=== PATIENT | female | born 1960 | race Caucasian/White ===

== ENCOUNTER 2019-04-13 14:58 | Outpatient (CLI) | payer OTHER, SELFPAY ==
--- NOTE | ~2019-04-13 | US_ITS ---
EXAMINATION:US venous doppler LE RT INDICATION:Right lower extremity pain TECHNIQUE: Multiple grayscale, color flow and Doppler images of the right lower extremity deep venous systems were obtained and reviewed. COMPARISON:No prior studies for comparison. FINDINGS: The common femoral, superficial femoral and popliteal veins demonstrate normal respiratory variation, augmentation and compressibility. Color flow is also seen within the posterior tibial, pe roneal, greater saphenous and profunda veins. IMPRESSION: 1: No lower extremity deep venous thrombosis. Reviewed, dictated and finalized at location A. K HOP
== END 2019-04-13 14:59 | disposition home or self-care (01) ==
PROVIDERS: PCP Family Medicine; Visit Provider Physician Assistant
DX: M79.89 Other specified soft tissue disorders (principal)
CPT/HCPCS: 93971

== ENCOUNTER 2019-08-30 00:34 | Outpatient (CLI) | payer OTHER, SELFPAY ==
[2019-08-30 18:12] LABS: SARS-CoV-2 RNA PCR Negative
== END 2019-08-30 00:35 | disposition home or self-care (01) ==
LOC: ANHCOVIDDT 00:34
PROVIDERS: PCP Family Medicine; Visit Provider Internal Medicine Gastroenterology
DX: Z20.828 Contact with and (suspected) exposure to other viral communicable diseases (principal); Z01.812 Encounter for preprocedural laboratory examination
CPT/HCPCS: 87635; C9803; U0003

== ENCOUNTER 2019-09-01 00:58 | Day surgery (SDC) | payer OTHER, SELFPAY ==
[2019-08-25 13:36] VITALS: BMI 28.2
[2019-09-01 06:55] VITALS: BMI 26.9
[2019-09-01 07:01] VITALS: BP 104/78; PULSE 68; RESP 16; TEMP 36.3; O2SAT 97
[2019-09-01] MEDS: LACTATED RINGERS 1,000 ML 100 ML IV CONT (07:11)
--- NOTE | 2019-09-01 08:05 | WPDANESEPPF ---
Anes - Initial Pre Proc Eval Procedure: Operation Date: 09/01/19 08:00 Proposed Procedures p Screening Colonoscopy - Stephen Sheppard MD Date/Time: 09/01/19 08:05 Surgeon: Stephen Sheppard MD Pre Op Diagnosis: neoplasm screening, hx colon polyps Patient Data Age: 59 Gender: F Height: 5 ft 2 in Weight: 66.8 kg Last Vital Signs Temp 97.4 F L 09/01/19 07:01 Pulse 68 09/01/19 07:01 Resp 16 09/01/19 07:01 BP 104/78 09/01/19 07:01 Pulse Ox 97 09/01/19 07:01 Allergies Allergy/AdvReac Type Severity Reaction Status Date / Time cat dander Allergy Unknown unknown Verified 09/01/19 06:53 cefuroxime Allergy Unknown GI upset Verified 09/01/19 06:53 codeine Allergy Unknown Unknown Verified 09/01/19 06:53 dog dander Allergy Unknown unknown Verified 09/01/19 06:53 Penicillins Allergy Unknown Unknown Verified 09/01/19 06:53 [place] pecan coffee AdvReac Mild Rash Uncoded 09/01/19 06:53 Home Medications Medication Instructions Recorded Confirmed Type levothyroxine 100 mcg tablet 100 mcg PO DAILY 03/31/19 08/25/19 History omeprazole 20 mg capsule,delayed 20 mg PO DAILY 03/31/19 08/25/19 History release ezetimibe 10 mg tablet 10 mg PO DAILY #90 tablet 04/11/19 08/25/19 Rx azelastine-fluticasone [Dymista] 137 spray INTRANASAL BID 08/25/19 08/25/19 History cholecalciferol (vitamin D3) 25 mcg PO DAILY 08/25/19 08/25/19 History [Vitamin D3] guaifenesin [Mucinex] 1,200 mg PO DAILY 08/25/19 08/25/19 History milk thistle 250 mg PO DAILY 08/25/19 08/25/19 History mycophenolate mofetil [CellCept] 1,000 mg PO DAILY 08/25/19 08/25/19 History niacin 250 mg PO DAILY 08/25/19 08/25/19 History Patient hx anesthesia problems: none Family hx anesthesia problems: none PMFSH Past Medical History Medical History (Updated 06/18/20 @ 08:00 by Selvin Guevara MD) Autoimmune hepatitis Hypothyroidism Mixed hyperlipidemia Social History Social History Smoking status: Never smoker Alcohol intake: current Gender identity (if verbalized by the patient): Female Anes - Eval Final PreProcedure Day of Procedure 09/01/19 08:05 Patient weight: normal Heart: regular rate and rhythm Lungs: clear to auscultation Airway: Mallampati scale class II Neurological: alert and oriented Last oral intake: >/= 8 hours ASA classification: III Emergent: no Anesthetic plan: proceed Anesthesia type and monitoring: general GIVS and standard monitoring Informed Consent: The patient's anesthetic plan and its attendant risks and benefits were discussed with the patient/family/POA. Questions were solicited and answers provided to the satisfaction of the patient/family/POA.
--- NOTE | 2019-09-01 08:18 | WPDGICN ---
Assessment and Plan Assessment and plan (1) History of colon polyps: Code(s): Z86.010 - Personal history of colonic polyps Status: Acute Assessment and Plan: History of adenomatous colon polyp removed from the colon 2014. Plan is for surveillance colonoscopy at this time. Follow-up colonoscopies at intervals in the future is also advised. (2) Autoimmune hepatitis: Code(s): K75.4 - Autoimmune hepatitis Status: Acute Assessment and Plan: Most recent LFTs reported to be normal. Patient appears stable. Currently being treated with CellCept 500 mg p.o. b.i.d.. Currently followed at [facility] previously with Dr. rodríguez. GI Consult Note Consult date/time: 09/01/19 08:18 HPI: Misty Moore is a 59 year old female Seen in evaluation at the request of Dr. Enrique Cheema. Patient presents for screening colonoscopy. She has a history of adenomatous colon polyp removed plan: In 2014. Her current weight appetite bowel movements are normal. She denies abdominal pain. She denies any blood in his stools. Family history is noncontributory. recent past medical history is significant for diagnosis of autoimmune hepatitis. Current treatment is CellCept 500 mg b.i.d.. Patient had a previous good response to prednisone. She was intolerant to Imuran. Review of Systems Review of Systems: All systems reviewed & are unremarkable except as noted in HPI and below PMFSH Past Medical History Medical History Autoimmune hepatitis Hypothyroidism Mixed hyperlipidemia Family History Family History Mother Family history of hepatitis, Onset Age: 78 Diabetes mellitus Family history of hypercholesterolemia Depression Family history of glaucoma Father Family history of malignant neoplasm of skin, Onset Age: 74 Family history of cardiovascular disease Cerebrovascular accident Sibling Diabetes mellitus Family history of glaucoma Family history of cardiovascular disease Grandparent Family history of glaucoma Other Family history of elevated blood lipids Social History Social History Smoking status: Never smoker Alcohol intake: current Gender identity (if verbalized by the patient): Female Meds Home Medications and Allergies Home Medications Medication Instructions Recorded Confirmed Type levothyroxine 100 mcg tablet 100 mcg PO DAILY 03/31/19 08/25/19 History omeprazole 20 mg capsule,delayed 20 mg PO DAILY 03/31/19 08/25/19 History release ezetimibe 10 mg tablet 10 mg PO DAILY #90 tablet 04/11/19 08/25/19 Rx azelastine-fluticasone [Dymista] 137 spray INTRANASAL BID 08/25/19 08/25/19 History cholecalciferol (vitamin D3) 25 mcg PO DAILY 08/25/19 08/25/19 History [Vitamin D3] guaifenesin [Mucinex] 1,200 mg PO DAILY 08/25/19 08/25/19 History milk thistle 250 mg PO DAILY 08/25/19 08/25/19 History mycophenolate mofetil [CellCept] 1,000 mg PO DAILY 08/25/19 08/25/19 History niacin 250 mg PO DAILY 08/25/19 08/25/19 History Allergies Allergy/AdvReac Type Severity Reaction Status Date / Time cat dander Allergy Unknown unknown Verified 09/01/19 06:53 cefuroxime Allergy Unknown GI upset Verified 09/01/19 06:53 codeine Allergy Unknown Unknown Verified 09/01/19 06:53 dog dander Allergy Unknown unknown Verified 09/01/19 06:53 Penicillins Allergy Unknown Unknown Verified 09/01/19 06:53 [place] pecan coffee AdvReac Mild Rash Uncoded 09/01/19 06:53 Vital Signs Vital Signs - 24 hr 09/01/19 07:01 Temperature 36.3 C L Pulse Rate 68 Respiratory Rate 16 Blood Pressure 104/78 Pulse Oximetry 97 Exam Narrative: Exam Narrative: Physical exam reveals patient to be alert. Vital signs stable. HEENT exam unremarkable. Lungs are clear to auscultation and percussion. Heart is without murmur or extra
[2019-09-01 08:36] VITALS: BP 91/62; PULSE 74; RESP 14; O2SAT 99
[2019-09-01 08:46] VITALS: BP 97/70; PULSE 67; RESP 21; O2SAT 99
[2019-09-01 08:56] VITALS: BP 102/68; PULSE 70; RESP 14; O2SAT 99
== END 2019-09-01 09:18 | disposition home or self-care (01) ==
PROVIDERS: PCP Family Medicine; Visit Provider Internal Medicine Gastroenterology
PROC: 0DJD8ZZ Inspection of Lower Intestinal Tract, Via Natural or Artificial Opening Endoscopic (ICD-10-PCS; CPT 45378; principal; 2019-09-01 08:00)
DX: Z12.11 Encounter for screening for malignant neoplasm of colon (principal); K64.8 Other hemorrhoids; Z86.010 Personal history of colon polyps; K75.4 Autoimmune hepatitis; E78.2 Mixed hyperlipidemia; E03.9 Hypothyroidism, unspecified
CPT/HCPCS: 45378; J2704; J7120

== ENCOUNTER 2019-11-22 14:09 | Outpatient (CLI) | payer OTHER, SELFPAY ==
--- NOTE | ~2019-11-22 | MM_ITS ---
EXAMINATION: MM screening ladan BI w manolo HISTORY: Screening TECHNIQUE: Craniocaudal and mediolateral oblique 3-D tomosynthesis images were obtained and synthetic 2-D images were generated. CAD analysis was submitted and interpreted. COMPARISON: Comparison to multiple prior studies sequentially, with oldest reviewed study dated 10/07. BREAST PARENCHYMAL COMPOSITION: There are scattered areas of fibroglandular density. FINDINGS: There is no evidence of suspicious mass, calcification, or architectural distortion to sugg est malignancy in either breast. There has been no suspicious interval change. IMPRESSION: 1. No mammographic evidence of malignancy. 2. Recommend routine screening mammography in one year. BI-RADS Category 1: Negative Reviewed, dictated and finalized at location A.
== END 2019-11-22 14:10 | disposition home or self-care (01) ==
LOC: ANHIMG 14:11
PROVIDERS: PCP Family Medicine; Visit Provider Family Medicine
DX: Z12.31 Encounter for screening mammogram for malignant neoplasm of breast (principal)
CPT/HCPCS: 77063; 77067

== ENCOUNTER → 2020-05-18 15:45 | Outpatient (CLI) | payer OTHER, SELFPAY ==
--- NOTE | ~2020-05-18 | US_ITS ---
EXAMINATION: US thyroid DATE: 05/18/2020 15:59 INDICATION: Nontoxic goiter with left thyroid enlargement. TECHNIQUE: Multiple ultrasound images of the thyroid were obtained. COMPARISON: None. FINDINGS: The right thyroid lobe measures 2.5 x 0.6 x 1.0 cm. The left thyroid lobe measures 1.9 x 0.5 x 0.9 c m. Thyroid isthmus measures 1-2 mm in thickness. No discrete nodules identified. There is normal echo texture, echogenicity and vascular flow throughout the thyroid gland. IMPRESSION: 1. Thyroid atrophy of indeterminate etiology. Reviewed, dictated and finalized at location B. ER HELPER
== END ==
PROVIDERS: Visit Provider Physician Assistant
DX: E04.9 Nontoxic goiter, unspecified (principal)
CPT/HCPCS: 76536

== ENCOUNTER → 2020-05-31 06:54 | Outpatient (CLI) | payer OTHER, SELFPAY ==
[2020-05-31 17:02] LABS: SARS-CoV-2 RNA PCR Negative
== END ==
PROVIDERS: PCP Family Medicine; Visit Provider Physician Assistant
DX: R50.9 Fever, unspecified (principal); Z20.822 Contact with and (suspected) exposure to COVID-19
CPT/HCPCS: C9803; U0003; U0005

== ENCOUNTER 2020-06-23 08:37 | Emergency (ER) | payer OTHER, SELFPAY ==
--- NOTE | ~2020-06-23 | CT_ITS ---
EXAMINATION: CT cervical spine [facility] EXAM DATE: 06/23/2020 11:08 INDICATION: Neck pain, bilateral arm pain. TECHNIQUE: Spiral CT of the cervical spine was performed without contrast. Axial images were reviewe d. Coronal and sagittal reformatted images were also reviewed. The dose-length product (DLP) for thi s examination was 383.31 mGy-cm. The exposure was tailored according to patient size (auto mA exposu re control), and iterative reconstruction (ASIR) was used as additional dose reduction technique. ere is no prior study for comparison. FINDINGS: There are no acute fractures identified. There is moderate disc disease at C5-6 and 6-7. S traightening of normal cervical lordosis could be positional or spasm. The vertebral bodies are alig catrachito in the AP dimension. Vertebral body heights are maintained. The odontoid process is intact. The lateral masses of C1 line up with C2. Paraspinal soft tissue is unremarkable. Level by level evaluation: C2-C3: Disc does not extend beyond the endplate margin. Uncovertebral joint arthropathy: None. Facet joint arthropathy: Mild left. Neural foraminal stenosis: No stenosis. Central canal stenosis: No stenosis. C3-C4: Disc does not extend beyond the endplate margin. Uncovertebral joint arthropathy: None. Facet joint arthropathy: Mild to moderate left, mild right. Neural foraminal stenosis: No stenosis. Central canal stenosis: No stenosis. C4-C5: There is a minimal diffuse disc bulge. Uncovertebral joint arthropathy: Mild right. Facet joint arthropathy: Mild bilateral. Neural foraminal stenosis: No stenosis. Central canal stenosis: No stenosis. C5-C6: There is a mild diffuse disc bulge. Uncovertebral joint arthropathy: Moderate to severe right, moderate left. Facet joint arthropathy: Mild to moderate bilateral. Neural foraminal stenosis: Moderate to severe bilateral. Central canal stenosis: Mild. C6-C7: There is a mild diffuse disc bulge. Uncovertebral joint arthropathy: Moderate bilateral. Facet joint arthropathy: Mild bilateral. Neural foraminal stenosis: Moderate right, mild left. Central canal stenosis: Mild. C7-T1: Disc does not extend beyond the endplate margin. Uncovertebral joint arthropathy: None. Facet joint arthropathy: Mild bilateral. Neural foraminal stenosis: No stenosis. Central canal stenosis: No stenosis. IMPRESSION: 1. C5-6 moderate to severe right, moderate left neural foraminal stenosis. 2. No more than mild central canal stenosis. 3. No acute cervical findings. Reviewed, dictated and finalized at location A.
[2020-06-23 08:46] VITALS: BP 128/87; PULSE 74; RESP 18; TEMP 36; O2SAT 100
--- NOTE | 2020-06-23 09:17 | ECG_ITS ---
Measurements Intervals [place] Rate: 74 P: 17 CA: 163 QRS: 13 QRSD: 95 T: 33 QT: 375 QTc: 417 Interpretive Statements SINUS RHYTHM DELAYED PRECORDIAL R/S TRANSITION BASELINE ARTIFACT- I, II, III, AVR, AVL, AVF, V1-V6 BORDERLINE ECG Electronically Signed On 06-23-2020 12:47:48 CDT by Jason William D.O.
[2020-06-23 09:55] LABS: Basophils Percent Auto 0.6 % (0.2-1.2); Eosinophils Absolute Auto 0.2 K/mm3 (0-0.3); Eosinophils Percent Auto 3.7 % (0-4.4); Hematocrit 39.1 % (37.0-47.0); Immature Granulocyte Absolute 0.01 K/mm3 (0.00-0.031); Immature Granulocyte Percent A 0.2 % (0-0.5); Lymphocytes Absolute Auto 1.58 K/mm3 (0.9-3.2); Lymphocytes Percent Auto 30.6 % (18.3-44.2); Mean Corpuscular HGB Conc 33.2 g/dl (32-36); Mean Corpuscular Hemoglobin 31.4 pg (26-34); Mean Corpuscular Volume 94.4 fl (80-100); Mean Platelet Volume 9.5 fl (7.4-10.4); Monocytes Absolute Auto 0.4 K/mm3 (0.1-0.6); Monocytes Percent Auto 7.9 % (2.6-8.5); Neutrophils Absolute Auto 2.9 K/mm3 (1.3-6.7); Platelet Count Result 260 k/mm3 (150-375); Red Blood Count 4.14 M/mm3 (4.2-5.4); Red Cell Distribution Width 12.9 % (11.5-14.5); White Blood Count 5.2 K/mm3 (4.5-10.0)
[2020-06-23 09:57] LABS: Add Urine Microscopic? NO; Appearance Urine Clear (Clear); Bilirubin Urine Negative (Negative); Blood Urine Negative (Negative); Color Urine Colorless (Yellow); Glucose Urine UA Negative (Negative); Ketones Urine Negative (Negative); Leukocyte Esterase Ur Negative LEU/UL (Negative); Nitrate Urine Negative (Negative); Protein Urine Negative (Negative); Urobilinogen Urine Negative mg/dL (<2.0)
--- NOTE | 2020-06-23 10:01 | ED.GENADULT ---
HPI - General Adult General Chief complaint: Nausea/Vomiting/Diarrhea Stated complaint: neck pain, arm pain, vomiting Time Seen by Provider: 06/23/20 09:15 Source: patient Mode of arrival: ambulatory Limitations: no limitations History of Present Illness HPI narrative: This is a 60 year old female who presents for evaluation of posterior neck pain. She developed posterior neck pain 1 week ago. She states she notices this pain when she sitting at her desk . she has been intermittently taking ibuprofen. She reports her pain has gradually worsened. She has developed left arm pain and she has also developed right arm pain. She sees a chiropractor so she has been performing exercises. She became concerned last night when she developed an episode of vomiting. She denies pain worse with exertion or movement. She denies dizziness, arm weakness, numbness, tingling, fever, chills. She reports only mild pain. She does not have left arm pain but she has some mild right arm pain. She also denies abdominal pain . She has not taken any medication today. She denies headache Related Data Home Medications Medication Instructions Recorded Confirmed omeprazole 20 mg capsule,delayed 20 mg PO DAILY 03/31/19 05/17/20 release azelastine-fluticasone [Dymista] 137 spray INTRANASAL BID 08/25/19 05/17/20 cholecalciferol (vitamin D3) 25 mcg PO DAILY 08/25/19 05/17/20 [Vitamin D3] guaifenesin [Mucinex] 1,200 mg PO DAILY 08/25/19 05/17/20 milk thistle 250 mg PO DAILY 08/25/19 05/17/20 mycophenolate mofetil [CellCept] 1,000 mg PO DAILY 08/25/19 05/17/20 niacin 250 mg PO DAILY 08/25/19 05/17/20 Allergies Allergy/AdvReac Type Severity Reaction Status Date / Time cat dander Allergy Unknown unknown Verified 06/23/20 08:48 cefuroxime Allergy Unknown GI upset Verified 06/23/20 08:48 codeine Allergy Unknown Unknown Verified 06/23/20 08:48 dog dander Allergy Unknown unknown Verified 06/23/20 08:48 Penicillins Allergy Unknown Unknown Verified 06/23/20 08:48 [place] pecan coffee AdvReac Mild Rash Uncoded 09/01/19 06:53 Review of Systems Review of Systems: All systems reviewed & are unremarkable except as noted in HPI and below Constitutional: Constitutional: Denies chills and Denies fever(s) Cardiovascular: Cardiovascular: Denies chest pain Respiratory: Respiratory: Denies cough and Denies dyspnea Gastrointestinal: Gastrointestinal: Denies abdominal pain, Denies diarrhea, Reports nausea and Reports vomiting Musculoskeletal: Comments: neck pain Neurologic: Denies headache(s), Denies focal weakness and Denies numbness [facility] Past Medical History Medical History (Updated 06/23/20 @ 12:12 by Olivia Mtz MD) Autoimmune hepatitis Hypothyroidism Mixed hyperlipidemia Family History Family History Mother Family history of hepatitis, Onset Age: 78 Diabetes mellitus Family history of hypercholesterolemia Depression Family history of glaucoma Father Family history of malignant neoplasm of skin, Onset Age: 74 Family history of cardiovascular disease Cerebrovascular accident Sibling Diabetes mellitus Family history of glaucoma Family history of cardiovascular disease Grandparent Family history of glaucoma Other Family history of elevated blood lipids Social History Social History Smoking status: Never smoker Alcohol intake: current Gender identity (if verbalized by the patient): Female Exam Const: General: no acute distress and alert Orientation/consciousness: patient oriented x3 HENMT: Head: normocephalic and atraumatic Face and sinus: face symmetric Eyes: Pupils: Equal, round and reactive pupils present EOM: EOMs intact bilaterally Resp: Effort & Inspection: normal respiratory effort and no retractions Auscultation: clear to auscultation bilaterally Cardio: Rate: regu
[2020-06-23 10:04] LABS: INR 0.9; Prothrombin Time 12.2 Seconds (11.1-14.7)
[2020-06-23 10:05] LABS: Partial Thromboplastin Time 25.2 SECONDS (22.3-36.8)
[2020-06-23 10:06] VITALS: BP 128/86; PULSE 74; O2SAT 99
--- NOTE | 2020-06-23 10:07 | PC.NURSE ---
called chem and talked to mary iraheta on trop base line at 10:05.
[2020-06-23 10:09] LABS: Alanine Aminotransferase 15 U/L (4-35); Albumin Level 3.9 g/dL (3.5-5.1); Alkaline Phosphatase 70 U/L (38-126); Anion Gap 4 mmol/L (8-16); Aspartate Amino Transferase 26 U/L (14-36); Bilirubin,Total 0.4 mg/dL (0.2-1.3); Blood Urea Nitrogen 8 mg/dL (7-17); Carbon Dioxide 27 mmol/L (22-30); Chloride 108 mmol/L (98-107); Estimated CRCL calculation 79 ml/min; Estimated Glomerular Filt Rate > 60; Glucose 88 mg/dL (65-105); Potassium 4.1 mmol/L (3.4-5.0); Sodium 139 mmol/L (137-145)
[2020-06-23 10:12] LABS: Specific Grav Ur 1.004 (1.001-1.035)
[2020-06-23 11:07] LABS: Troponin I < 0.012 ng/mL (0.000-0.034)
[2020-06-23 11:15] VITALS: BP 110/77; PULSE 62; RESP 16; O2SAT 100
[2020-06-23 12:24] VITALS: BP 108/89; PULSE 79; RESP 18; O2SAT 96
== END 2020-06-23 12:25 | disposition home or self-care (01) ==
PROVIDERS: Emergency Provider General Practice; PCP Family Medicine
DX: M54.12 Radiculopathy, cervical region (principal); M48.02 Spinal stenosis, cervical region; E03.9 Hypothyroidism, unspecified; E78.2 Mixed hyperlipidemia; K75.4 Autoimmune hepatitis; R94.31 Abnormal electrocardiogram [ECG] [EKG]
CPT/HCPCS: 36415; 72125; 80053; 81003; 84484; 85025; 85610; 85730; 93005; 99284

== ENCOUNTER → 2020-06-30 07:37 | Outpatient (CLI) | payer OTHER, SELFPAY ==
--- NOTE | ~2020-06-30 | MR_ITS ---
EXAMINATION: MR cervical spine wo con DATE: 06/30/2020 08:38 INDICATION: Cervical radiculopathy. Neck pain. TECHNIQUE: Magnetic resonance imaging (MRI) of the cervical spine was performed without intravenous c ontrast. Sequences included sagittal T2-weighted FSE, sagittal STIR FSE, sagittal T1-weighted FSE, ax ial MERGE, and axial T2-weighted FSE. COMPARISON: CT cervical spine 06/23/2020 FINDINGS: Bone alignment is normal. Vertebral body heights are normal. There is moderately decreased disc height at C5-C6 and C6-C7. There is a hemangioma in T1 vertebral body. The following disc levels are specifically discussed: C2-C3: The disc does not extend beyond the endplate margin. There is no uncovertebral joint osteoarth ritis. There is mild right and moderate left facet joint osteoarthritis. There is no neural foraminal stenosis. There is no central canal stenosis. C3-C4: The disc does not extend beyond the endplate margin. There is no uncovertebral joint osteoarth ritis. There is mild right and severe left facet joint osteoarthritis. There is no neural foraminal s tenosis. There is no central canal stenosis. C4-C5: The disc does not extend beyond the endplate margin. There is no uncovertebral joint osteoarth ritis. There is mild bilateral facet joint osteoarthritis. There is no neural foraminal stenosis. The re is no central canal stenosis. C5-C6: The disc is bulging. There is severe bilateral uncovertebral joint osteoarthritis. There is mi ld bilateral facet joint osteoarthritis. There is moderate bilateral neural foraminal stenosis. There is mild central canal stenosis. C6-C7: The disc is bulging. There is severe bilateral uncovertebral joint osteoarthritis. There is mi ld bilateral facet joint osteoarthritis. There is moderate bilateral neural foraminal stenosis. There is mild central canal stenosis. C7-T1: The disc does not extend beyond the endplate margin. There is no uncovertebral joint osteoarth ritis. There is mild bilateral facet joint osteoarthritis. There is no neural foraminal stenosis. The re is no central canal stenosis. IMPRESSION: 1. Moderate cervical spondylosis. Reviewed, dictated and finalized at location B.
== END ==
PROVIDERS: PCP Family Medicine; Visit Provider Physician Assistant
DX: M47.23 Other spondylosis with radiculopathy, cervicothoracic region (principal); M48.03 Spinal stenosis, cervicothoracic region
CPT/HCPCS: 72141

== ENCOUNTER → 2020-12-14 10:04 | Outpatient (CLI) | payer OTHER, SELFPAY ==
--- NOTE | ~2020-12-14 | MM_ITS ---
EXAMINATION: MM screening ladan BI w manolo HISTORY: Screening TECHNIQUE: Craniocaudal and mediolateral oblique 3-D tomosynthesis images were obtained and synthetic 2-D images were generated. CAD analysis was submitted and interpreted. COMPARISON: Comparison to multiple prior studies sequentially, with oldest reviewed study dated 10/13. BREAST PARENCHYMAL COMPOSITION: There are scattered areas of fibroglandular density. FINDINGS: There is no evidence of suspicious mass, calcification, or architectural distortion to sugg est malignancy in either breast. There has been no suspicious interval change. IMPRESSION: 1. No mammographic evidence of malignancy. 2. Recommend routine screening mammography in one year. BI-RADS Category 1: Negative Reviewed, dictated and finalized at location A.
== END ==
PROVIDERS: PCP Family Medicine; Visit Provider Family Medicine
DX: Z12.31 Encounter for screening mammogram for malignant neoplasm of breast (principal)
CPT/HCPCS: 77063; 77067

== ENCOUNTER 2021-10-24 08:26 | Outpatient (CLI) | payer OTHER, SELFPAY ==
--- NOTE | 2021-11-24 14:10 | WPDSLEEPSTUD ---
Sleep Study Date of Study: 10/24/21 Ordering Provider: KRISTINE Chaves Interpreting Physician: Landy Harry DO Sleep Study Type: Split Polysomnogram Height: 1.57 m Weight: 65.771 kg Body Mass Index: 26.5 Neck Circumference (inches): 15 [place]: 6 Reason for Sleep Study The patient had a home sleep study on 08/01/2021 that showed an AHI of 11.6. She was only able to get 3 hours 49 minutes of recording time. Sleep History The patient is a 61-year-old female with hypothyroidism, hyperlipidemia, GERD, sinus disease and autoimmune hepatitis that had a sleep study ordered by the pulmonary office for evaluation of sleep apnea. The patient denies awakening from sleep short of breath. She occasionally awakens at night with heartburn, belching or cough. She frequently snores and is occasionally loud enough that others complain. She denies having trouble sleeping when she has a cold. She rarely wakes up gasping for air throughout the night. She occasionally has breathing problems at night observed by herself or others. She frequently sweats excessively at night. She denies having heart palpitations or irregular heartbeats during the night. She denies falling asleep during the day and while driving. She denies sleep paralysis. she denies having trouble at school or work due to sleepiness. She rarely feels unable to move when waking up or falling asleep. He rarely experiences vivid dreamlike scenes upon awakening or falling asleep. She denies feeling afraid of going to sleep. She rarely has nightmares. She frequently remembers her dreams. She occasionally has thoughts racing through her mind. She rarely feels sad or depressed. She occasionally has anxiety. She denies having muscular tension. She denies noticing parts of her body jerk. She denies kicking during the night. She denies having crawling and aching feelings in her legs but will rarely experiences leg pain during the night. She frequently grinds her teeth during sleep but denies awakening with morning jaw pain. She is occasionally bothered by pain during the day but denies being awakened by pain during the night. She denies waking up feeling stiff in the morning. She denies waking up with sore achy muscles. She rarely wakes up with pain in the neck, spine or other joints. She goes to bed between 9-10 p.m. on both weekdays and weekends. He is able to fall asleep within 15 minutes. She wakes up 2-3 times throughout the night for unknown reasons. She is able to fall asleep within 5 minutes. He wakes up between 5-7 a.m. on both weekdays and weekends. She typically gets 8-9 hours of sleep per night. She does not stay in bed after waking up in the morning. She currently lives alone. She denies consuming any caffeinated beverages within 2 hours of bedtime. He does not engage in physical exercise before bedtime. She will watch television and occasionally read before falling asleep. He denies taking naps in the afternoon or the evening. She drinks 1-2 caffeinated beverages per day. She denies tobacco, alcohol and recreational drug use. [facility] Past Medical History Medical History Autoimmune hepatitis Hepatitis C antibody test negative (09/25/17) Hypothyroidism Mixed hyperlipidemia Obstructive sleep apnea Family History Family History Mother Family history of hepatitis, Onset Age: 78 Diabetes mellitus Family history of hypercholesterolemia Depression Family history of glaucoma Father Family history of malignant neoplasm of skin, Onset Age: 74 Family history of cardiovascular disease Cerebrovascular accident Sibling Diabetes mellitus Family history of glaucoma Family history of cardiovascular disease Grandparent Family history of glaucoma Other Family history of elevated blood lipids Social History Social History (Reviewed
[2021-11-24 14:24] VITALS: BMI 26.5
== END 2021-10-25 06:41 | disposition home or self-care (01) ==
LOC: ANHCSM 08:26
PROVIDERS: PCP Emergency Medicine; Visit Provider Physician Assistant
DX: G47.33 Obstructive sleep apnea (adult) (pediatric) (principal)
CPT/HCPCS: 95811

== ENCOUNTER → 2022-02-24 16:14 | Outpatient (CLI) | payer OTHER, SELFPAY ==
--- NOTE | ~2022-02-24 | MM_ITS ---
EXAMINATION: MM screening ladan BI w manolo HISTORY: Screening TECHNIQUE: Craniocaudal and mediolateral oblique 3-D tomosynthesis images were obtained and synthetic 2-D images were generated. CAD analysis was submitted and interpreted. COMPARISON: Comparison to multiple prior studies sequentially, with oldest reviewed study dated 08/2015. BREAST PARENCHYMAL COMPOSITION: Breast composed of scattered areas of fibroglandular density FINDINGS: There is no evidence of suspicious mass, calcification, or architectural distortion to sugg est malignancy in either breast. There has been no suspicious interval change. IMPRESSION: 1. No mammographic evidence of malignancy. 2. Recommend routine screening mammography in one year. BI-RADS Category 1: Negative Reviewed, dictated and finalized at location B. [employer]
== END ==
PROVIDERS: PCP Emergency Medicine; Visit Provider Emergency Medicine
DX: Z12.31 Encounter for screening mammogram for malignant neoplasm of breast (principal)
CPT/HCPCS: 77063; 77067

== ENCOUNTER 2022-04-28 08:15 | Outpatient (CLI) | payer OTHER, SELFPAY ==
--- NOTE | 2022-05-18 16:21 | WPDSLEEPSTUD ---
Sleep Study Date of Study: 04/28/22 Ordering Provider: KRISTINE Chaves Interpreting Physician: Landy Harry DO Sleep Study Type: Polysomnogram Height: 1.57 m Weight: 66.224 kg Body Mass Index: 26.6 Neck Circumference (inches): 15 [place]: 6 Reason for Sleep Study The patient had an HSAT on 08/01/2021 that showed an AHI of 11.6. She had a split study on 10/24/2021 that showed an overall AHI of 15.4 and REM AHI of 52.2. The patient was titrated from CPAP 5 cm H2O to BPAP 13/9 cm H2O. She was prescribed CPAP 6 cm H2O. The patient opted for a mandibular advancement device instead of CPAP. Sleep History The patient is a 62-year-old female with hypothyroidism, hyperlipidemia, GERD, sinus disease and autoimmune hepatitis that had a sleep study ordered by the pulmonary office for evaluation of sleep apnea.? The patient denies awakening from sleep short of breath.? She occasionally awakens at night with heartburn, belching or cough.? She frequently snores and is occasionally loud enough that others complain.? She denies having trouble sleeping when she has a cold.? She rarely wakes up gasping for air throughout the night.? She occasionally has breathing problems at night observed by herself or others.? She frequently sweats excessively at night.? She denies having heart palpitations or irregular heartbeats during the night.? She denies falling asleep during the day and while driving.? She denies sleep paralysis. she denies having trouble at school or work due to sleepiness.? She rarely feels unable to move when waking up or falling asleep.? He rarely experiences vivid dreamlike scenes upon awakening or falling asleep.? She denies feeling afraid of going to sleep.? She rarely has nightmares.? She frequently remembers her dreams.? She occasionally has thoughts racing through her mind.? She rarely feels sad or depressed.? She occasionally has anxiety.? She denies having muscular tension.? She denies noticing parts of her body jerk.? She denies kicking during the night.? She denies having crawling and aching feelings in her legs but will rarely experiences leg pain during the night.? She frequently grinds her teeth during sleep but denies awakening with morning jaw pain.? She is occasionally bothered by pain during the day but denies being awakened by pain during the night.? She denies waking up feeling stiff in the morning.? She denies waking up with sore achy muscles.? She rarely wakes up with pain in the neck, spine or other joints.? She goes to bed between 9-10 p.m. on both weekdays and weekends.? He is able to fall asleep within 15 minutes.? She wakes up 2-3 times throughout the night for unknown reasons.? She is able to fall asleep within 5 minutes.? He wakes up between 5-7 a.m. on both weekdays and weekends.? She typically gets 8-9 hours of sleep per night.? She does not stay in bed after waking up in the morning.? She currently lives alone.? She denies consuming any caffeinated beverages within 2 hours of bedtime.? He does not engage in physical exercise before bedtime.? She will watch television and occasionally read before falling asleep.? He denies taking naps in the afternoon or the evening. She drinks 1-2 caffeinated beverages per day.? She denies tobacco, alcohol and recreational drug use. [facility] Past Medical History Medical History Autoimmune hepatitis Hepatitis C antibody test negative (09/25/17) Hypothyroidism Mixed hyperlipidemia Obstructive sleep apnea Family History Family History Mother Family history of hepatitis, Onset Age: 78 Diabetes mellitus Family history of hypercholesterolemia Depression Family history of glaucoma Father Family history of malignant neoplasm of skin, Onset Age: 74 Family history of cardiovascular disease Cerebrovascular accident Sibling Diabetes mellitus Family history of glaucoma
[2022-05-18 16:36] VITALS: BMI 26.6
== END 2022-04-29 06:49 | disposition home or self-care (01) ==
LOC: ANHCSM 08:18
PROVIDERS: PCP Emergency Medicine; Visit Provider Physician Assistant
DX: G47.33 Obstructive sleep apnea (adult) (pediatric) (principal); E03.9 Hypothyroidism, unspecified; E78.5 Hyperlipidemia, unspecified
CPT/HCPCS: 95810

== ENCOUNTER 2023-02-27 13:48 | Outpatient (CLI) | payer OTHER, SELFPAY ==
--- NOTE | ~2023-02-27 | MM_ITS ---
EXAMINATION: MM screening ladan BI w manolo HISTORY: Screening TECHNIQUE: Craniocaudal and mediolateral oblique 3-D tomosynthesis images were obtained and synthetic 2-D images were generated. CAD analysis was submitted and interpreted. COMPARISON: Comparison to multiple prior studies sequentially, with oldest reviewed study dated 10/2016. BREAST PARENCHYMAL COMPOSITION: Breast composed of scattered areas of fibroglandular density FINDINGS: There is a new 5 mm mass in the mid outer aspect of the right breast anteriorly. The left b reast is stable without evidence for malignancy. IMPRESSION: 1. New 5 mm right breast mass of the right breast mid lateral aspect anteriorly. 2. Additional mammographic views and possible breast ultrasound are recommended. BI-RADS Category 0: Incomplete: Needs additional imaging evaluation. Reviewed, dictated and finalized at location A. ING HOME MANAGER IMPRESSION: 1. New 5 mm right breast mass of the right breast mid lateral aspect anteriorly . 2. Additional mammographic views and possible breast ultrasound are recommended . BI-RADS Category 0: Incomplete: Needs additional imaging evaluation.
== END 2023-02-27 13:49 | disposition home or self-care (01) ==
LOC: CHSIMG 13:49
PROVIDERS: PCP Emergency Medicine; Visit Provider Nurse Practitioner Family
DX: Z12.31 Encounter for screening mammogram for malignant neoplasm of breast (principal); R92.8 Other abnormal and inconclusive findings on diagnostic imaging of breast
CPT/HCPCS: 77063; 77067

== ENCOUNTER → 2023-03-24 14:28 | Outpatient (CLI) | payer OTHER, SELFPAY ==
--- NOTE | ~2023-03-24 | MMUS_ITS ---
EXAMINATION: MM diagnostic ladan RT w manolo, US breast RT limited HISTORY: Right breast mass on screening mammogram TECHNIQUE: Additional 3-D tomosynthesis images of the right breast were performed and synthetic 2-D i mages were generated. CAD analysis was submitted and interpreted. High resolution limited right breas t ultrasound was performed. COMPARISON: 02/27/2023, 02/24/2022, 12/14/2020, 11/22/2019 FINDINGS: MAMMOGRAPHIC FINDINGS: There is a return to baseline fibroglandular appearance with spot compression of the right breast in the area questioned on screening mammogram. A 5 mm low-density mass in the middle third of the outer breast at the 9:00 and compared to prior examinations. ULTRASOUND: There is a 5 mm x 2 mm oval, circumscribed, parallel, hypoechoic mass with no posterior features or i nternal vascularity at the 9:00 location, 5 cm from the nipple corresponding to the mammographic find ing in question. IMPRESSION: 1. No mammographic or sonographic evidence of malignancy. 2. Recommend routine screening mammography in one year. BI-RADS Category 2: Benign finding(s). Reviewed, dictated and finalized at location A. FIC LAW ATTORNEY IMPRESSION: 1. No mammographic or sonographic evidence of malignancy. 2. Recommend routine screening mammography in one year. BI-RADS Category 2: Benign finding(s).
== END ==
PROVIDERS: PCP Nurse Practitioner Family; Visit Provider Nurse Practitioner Family
DX: R92.8 Other abnormal and inconclusive findings on diagnostic imaging of breast (principal)
CPT/HCPCS: 76642; 77061; 77065; G0279

== ENCOUNTER → 2023-03-25 10:57 | Outpatient (CLI) | payer OTHER, SELFPAY ==
--- NOTE | ~2023-03-25 | XR_ITS ---
XR chest 2V DATE: 03/25/2023 11:42 INDICATION: Chronic cough. Nonsmoker. TECHNIQUE: PA and lateral views COMPARISON: None FINDINGS: Normal heart size. No hilar or mediastinal enlargement. No pulmonary infiltrate or consolid ation, pleural effusion or pulmonary vascular congestion or pneumothorax is detected. IMPRESSION: No active cardiopulmonary disease Reviewed, dictated and finalized at location B. CAPTAIN
== END ==
PROVIDERS: Visit Provider Emergency Medicine
DX: R05.3 Chronic cough (principal)
CPT/HCPCS: 71046

== ENCOUNTER 2024-02-25 08:25 | Outpatient (CLI) | payer OTHER, SELFPAY ==
--- NOTE | ~2024-02-25 | NM_ITS ---
EXAMINATION: NM luciano stress w perfusion DATE: 02/25/2024 11:01 [employer]CE INDICATION: Chest pain TECHNIQUE: Rest images were obtained following intravenous administration of 10.1 mCi Tc99m tetrofosm in (Myoview). The patient was infused intravenously with Lexiscan (regadenoson). Then, 31.7 mCi Tc99m tetrofosmin (Myoview) was administered intravenously, and stress images were obtained. Data was gian nstructed into short axis and horizontal and vertical long axis SPECT images. Gated SPECT images were also obtained. COMPARISON: None. FINDINGS: There is no definite reversible or fixed perfusion abnormality to suggest ischemia or infar ction. There is no segmental wall motion abnormality. Left ventricular ejection fraction measures 8 1%. IMPRESSION: 1. No definite ischemia or infarct. 2. Normal left ventricular ejection fraction measuring 81%. Reviewed, dictated and finalized at location B. [employer]INTENANCE
--- NOTE | 2024-02-25 08:50 | EST_ITS ---
Patient Info Name: Misty Moore Age: 63 years : 1960 Gender: Female Ht: 62 in Wt: 145 lbs BSA: 1.71 m2 Exam Date: 02/25/2024 9:59 AM Exam Location: [facility] Patient Status: Outpatient Admit Date: 02/25/2024 Staff Ordering Physician: Jocy Lizarraga Attending Provider: Jocy Lizarraga Exercise Technologist: Carlyn Mcduffie RDCS Exercise Physician: Jason William DO Exam Type: CA stress test treadmill w NM Study Info Indications R07.9 - Chest pain, unspecified A nuclear stress test was performed. Summary 1. 1. Negative Efra exercise stress test for ischemic ST changes by ECG criteria. 2. 2. Reduced functional capacity, achieving 7 METs of workload. 3. 3. Appropriate HR response to exercise. 4. 4. Appropriate HR recovery at 1 minute post exercise. 5. 5. Nuclear scan to follow and will be reported separately. Please correlate with it. 6. 6. Patient informed of the above results. Protocol: Efra Stress ECG Details Stage: REST Duration (min): 0 min : 41 sec Speed (mph): 0.0 Grade (%): 0 HR (bpm): 73 SBP (mmHg): 129 DBP (mmHg): 87 METS: --- Stage: REST Duration (min): 3 min : 50 sec Speed (mph): 0.0 Grade (%): 0 HR (bpm): 87 SBP (mmHg): 129 DBP (mmHg): 87 METS: --- Stage: STAGE 1 Duration (min): 1 min : 0 sec Speed (mph): 1.7 Grade (%): 10 HR (bpm): 99 SBP (mmHg): 129 DBP (mmHg): 87 METS: --- Stage: STAGE 1 Duration (min): 2 min : 0 sec Speed (mph): 1.7 Grade (%): 10 HR (bpm): 112 SBP (mmHg): 129 DBP (mmHg): 87 METS: --- Stage: STAGE 1 Duration (min): 3 min : 0 sec Speed (mph): 1.7 Grade (%): 10 HR (bpm): 119 SBP (mmHg): 144 DBP (mmHg): 81 METS: --- Stage: STAGE 2 Duration (min): 1 min : 0 sec Speed (mph): 2.5 Grade (%): 12 HR (bpm): 134 SBP (mmHg): 144 DBP (mmHg): 81 METS: --- Stage: STAGE 2 Duration (min): 2 min : 0 sec Speed (mph): 2.5 Grade (%): 12 HR (bpm): 143 SBP (mmHg): 172 DBP (mmHg): 83 METS: --- Stage: STAGE 1 Duration (min): 3 min : 0 sec Speed (mph): 1.7 Grade (%): 10 HR (bpm): 119 SBP (mmHg): 144 DBP (mmHg): 81 METS: --- Stage: STAGE 2 Duration (min): 3 min : 0 sec Speed (mph): 2.5 Grade (%): 12 HR (bpm): 146 SBP (mmHg): 172 DBP (mmHg): 83 METS: --- Stage: RECOVERY Duration (min): 0 min : 59 sec Speed (mph): 0.0 Grade (%): 0 HR (bpm): 123 SBP (mmHg): 189 DBP (mmHg): 79 METS: --- Stage: RECOVERY Duration (min): 1 min : 59 sec Speed (mph): 0.0 Grade (%): 0 HR (bpm): 106 SBP (mmHg): 189 DBP (mmHg): 79 METS: --- Stage: RECOVERY Duration (min): 2 min : 59 sec Speed (mph): 0.0 Grade (%): 0 HR (bpm): 102 SBP (mmHg): 148 DBP (mmHg): 79 METS: --- Stage: RECOVERY Duration (min): 3 min : 59 sec Speed (mph): 0.0 Grade (%): 0 HR (bpm): 98 SBP (mmHg): 148 DBP (mmHg): 79 METS: --- Stage: RECOVERY Duration (min): 4 min : 59 sec Speed (mph): 0.0 Grade (%): 0 HR (bpm): 93 SBP (mmHg): 139 DBP (mmHg): 81 METS: --- Stage: RECOVERY Duration (min): 5 min : 59 sec Speed (mph): 0.0 Grade (%): 0 HR (bpm): 91 SBP (mmHg): 139 DBP (mmHg): 81 METS: --- Stage: RECOVERY Duration (min): 6 min : 58 sec Speed (mph): 0.0 Grade (%): 0 HR (bpm): 91 SBP (mmHg): 124 DBP (mmHg): 85 METS: --- Rest HR: 87 bpm Peak HR: 146 bpm Rest Sys BP: 129 mmHg Peak Sys BP: 189 mmHg Max Pred HR: 159 bpm % Max Pred HR: 92 % Target HR: 135 bpm Max RPP: 27,594 bpm*mmHg Osman Score: 3 Termination Reason: Reached target heart rate or workload Cardiac Symptoms: Shortness of breath Max ST Seg Deviation: 1 mm Total Time: 6 min : 0 sec Rest Hull BP: 87 mmHg Peak Hull BP: 79 mmHg Angina Score: None Total METS: 7.1 Resting ECG Sinus rhythm. Stress ECG No ST changes. Arrhythmias None. Report Signatures
== END 2024-02-25 08:26 | disposition home or self-care (01) ==
PROVIDERS: PCP Nurse Practitioner Family; Visit Provider Nurse Practitioner Family
DX: R07.9 Chest pain, unspecified (principal); R06.02 Shortness of breath
CPT/HCPCS: 78452; 93017; A9502

== ENCOUNTER 2024-02-29 12:45 | Outpatient (CLI) | payer OTHER, SELFPAY ==
--- NOTE | ~2024-02-29 | MM_ITS ---
EXAMINATION: MM screening ladan BI w manolo HISTORY: Screening TECHNIQUE: Craniocaudal and mediolateral oblique 3-D tomosynthesis images were obtained and synthetic 2-D images were generated. CAD analysis was submitted and interpreted. COMPARISON: Comparison to multiple prior studies sequentially, with oldest reviewed study dated 11/10. BREAST PARENCHYMAL COMPOSITION: Not Dense: The breasts are almost entirely fatty. FINDINGS: There is no evidence of suspicious mass, calcification, or architectural distortion to sugg est malignancy in either breast. There has been no suspicious interval change. IMPRESSION: 1. No mammographic evidence of malignancy. 2. Recommend routine screening mammography in one year. BI-RADS Category 1: Negative Reviewed, dictated and finalized at location B. BOSS
== END 2024-02-29 12:46 | disposition home or self-care (01) ==
PROVIDERS: PCP Nurse Practitioner Family; Visit Provider Nurse Practitioner Family
DX: Z12.31 Encounter for screening mammogram for malignant neoplasm of breast (principal)
CPT/HCPCS: 77063; 77067

== ENCOUNTER 2024-06-14 00:44 | Day surgery (SDC) | payer OTHER, SELFPAY ==
[2024-06-06 12:26] VITALS: BMI 26.5
--- OUTSIDE RECORDS SUMMARY | 2024-06-14 00:46 | XMS_ITS | Data Portability ---
Author Organization [facility] [place] Address [address] [place] [address] Care Team Providers Care Pantograph Ii Engraver Name Role Phone DULCE MARIA DAVALOS Primary Care Provider Assessment No assessment recorded. Plan of Treatment Reminders Order Date Submit Date Provider Last Modified By Organization Details Last Modified Time Details Appointments None record ed. Lab None record ed. Referral None record ed. Procedures None record ed. Surgeries None record ed. Imaging None record ed. Medication Orders None record ed. Patient TargetsNo targets recorded. Patient InstructionsNo instructions recorded. Reason for Referral None Reported. Procedures Surgical History Date Name Laterality Status Provider Name and Address Organization Details Recorded Time 3 Date of Last Pap Smear completed [facility] 12/29/2022 10:54:42 2 Date of Last Mammogram completed [facility] 12/29/2022 10:54:42 0 completed [facility] 12/29/2022 10:54:42 0 Date of Last Colonoscopy completed [facility] 12/29/2022 10:54:42 Colonoscopy completed [facility] 12/29/2022 10:55:06 Imaging Results None recorded. Procedure Notes None recorded. Medical Equipment None Reported. Allergies Allergen ID Allergen Name Allergen Category Reaction Reaction Severity Criticality Documentation Date Start Date Code Code System Note Provider Name and Address Organization Details Recorded Time 94263 acetamino phen / codeine medicatio n nausea Not available Not available 12/29/2022 51411 9 RxNorm Apolonia Swayne null, [facility] 3 10:54:06 09074 cat dander environme nt Not available Not available Not available 12/29/2022 55995 UNK Apolonia Swayne null, [facility] 3 10:54:06 53157 Canis lupus familiari s extract environme nt Not available Not available Not available 12/29/2022 79466 4 RxNorm Apolonia Swayne null, [facility] 3 10:54:06 61251 Penicilli n Not available nausea Not available Not available 12/29/2022 09206 RxNorm Apolonia Swayne null, [facility] 3 10:54:06 Medications Name Sig Start Date Stop Date Status Note LastModified by Organization Details LastModified Time prednisone 10 mg tablet active Not Available Not Available Not Available sumatriptan 100 mg tablet active Not Available Not Available Not Available Prilosec 20 mg capsule,mark anthony yed release active Not Available Not Available Not Available Atrovent 42 mcg (0.06 %) nasal spray active Not Available Not Available Not Available mycophenolat e mofetil 500 mg tablet TAKE 1 TABLET BY MOUTH TWICE DAILY active Not Available Not Available No t Available levothyroxin e 100 mcg tablet TAKE 1 TABLET BY MOUTH DAILY active Not Available Not Available Not Available levothyroxin e 88 mcg tablet TAKE 1 TABLET BY MOUTH DAILY active Not Available Not Available Not Available estradiol 0.01% (0.1 mg/gram) vaginal cream INSERT 1 GRAM VAGINALLY 3 TIMES A WEEK active Not Available Not Available No t Available ipratropium bromide 21 mcg (0.03 %) nasal spray USE 1 TO 2 SPRAYS IN EACH NOSTRIL THREE TIMES DAILY NEEDED active Not Available Not Available No t Available finasteride 5 mg tablet TAKE 1 TABLET BY MOUTH EVERY DAY active Not Available Not Available No t Available Mucinex 600 mg tablet, extended release active Not Available Not Available Not Available ezetimibe 10 mg tablet TAKE 1 TABLET BY MOUTH DAILY active Not Available Not Available Not Available azelaic acid 15 % topical gel APPLY TO FACE EVERY DAY active Not Available Not Available No t Available eszopiclone 2 mg tablet active Not Available Not Available Not Available levothyroxin e 100 mcg capsule active Not Available Not Available Not Available azelastine 137 mcg-fluticas one 50 mcg/spray nasal spray USE 1 SPRAY IN EACH NOSTRIL TWICE DAILY active Not Available Not Available Not Available Dymista active Not Available Not Avail able Not Available Repatha SureClick 140 mg/mL subcutaneous pen injector ADMINISTER 1 ML UNDER THE SKIN MONTHLY active Not Available Not Available No t Available Vitals Date Recorded Body weight Body mass index (BMI) Body height Systolic blood pressure Diastolic blood pressure Provider Name and Address Organization Details Last Updated DateTime 12/29/2022 59179.8 g 26.9 kg/m2 157.48 cm 128 mm[Hg] 81 mm[Hg] Apolonia Pittman [facility] 3 10:52:48 Social History Question Answer Notes LastModified by Organizat ion Details LastModified Time What Is Your Level Of Alcohol Consumption? None Information not available 12/29/2022 Are You Blind Or Do You Have Difficulty Seeing? No Information not available 12/29/2022 What Is Your Level Of Caffeine Consumption? Moderate Information not available 12/29/2022 How Much Tobacco Do You Chew? None Information not available 12/29/2022 In The 14 Days Before Symptom Onset, Have You Had Close Contact With A Laboratory-confirme d COVID-19 While That Case Was Ill? No Information n ot available 12/29/2022 In The 14 Days Before Symptom Onset, Have You Had Close Contact With A Person Who Is Under Investigation For COVID-19 While That Person Was Ill? No Information not available 12/29/2022 Have You Been To An Area Known To Be High Risk For COVID-19? No Information not available 12/29/2022 Are You Deaf Or Do You Have Serious Difficulty Hearing? No Information not available 12/29/2022 What Type Of Diet Are You Following? REGULAR Information n ot available 12/29/2022 What Is The Highest Grade Or Level Of School You Have Completed Or The Highest Degree You Have Received? 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 No Information not available 12/29/2022 Do You Use Protection During Sex? No Information not available 12/29/2022 Do You Use Your Seat Belt Or Car Seat Routinely? Yes Information not available 12/29/2022 Do You Have Smoke And Carbon Monoxide Detectors In Your Home? Yes Information not available 12/29/2022 How Much Tobacco Do You Smoke? No Information not available 12/29/2022 Do You Feel Stressed (tense, Restless, Nervous, Or Anxious, Or Unable To Sleep At Night)? [id number] Information not available 12/29/2022 Do You Use Any Illicit Or Recreational Drugs? No Information not available 12/29/2022 Do You Use Sunscreen Routinely? No Information not available 12/29/2022 Have You Used IV Drugs? No Information not available 12/29/2022 Sex: Unknown Functional Status Question Answer Note LastModified by Organization D etails LastModified Time Are you able to walk? YESWOREST Information not available 12/29/2022 What is your exercise level? Moderate Information not available 12/29/2022 Mental Status None recorded. Family History Relationship Description Onset Age of this Age Resolved Age Notes LastModified by Organization Details LastModified Time Mother Hypercholest erolemia dswayne Not available 2022 10:54:17 Mother Anemia dswayne Not available 10:54:17 Sister Disorder of thyroid gland dswayne Not available 2022 10:54:17 Sister Diabetes mellitus dswayne Not available 2022 10:54:17 Father Heart disease dswayne Not available 2022 10:54:17 Medical History Condition Response Autoimmune disease Y Anemia Y Polyps Y High Cholesterol Y Anesthesia Complications Y History of abnormal pap Y Acid Reflux (GERD) Y Urinary Tract Infection Y Headaches Y Thyroid Problems Y Gynecological History Statement/Question Response Date of Last Mammogram 02/24/2022 N Was last menstrual period normal Y HPV Vaccine Y Duration of Flow (days) 5 Current Control Method None Date of Last Colonoscopy 09/01/2019 Frequency of Cycle (Q days) 28 Sexually Active? Y Age of first menstrual cycle 14 Date of Last Pap Smear 12/09/2022 Sexual Problems? Y LMP Unknown 09/01/2019 N Obstetrics History GPAL:G 0 P 0 0 0 0 Past Encounters Encounter ID Performer Location Encounter Start Date Encounter Closed Date Diagnosis/Indication Diagnosis SNOMED-CT Code Diagnosis ICD10 Code Diagnosis Note [id number] DESTINY FAGAN MD [place] [address] [address] 12/29/2022 10:35:03 12/30/2022 08:50:15 Vulval superficial dyspareunia 711424759 N94.11 - unclear duration, possibly up to 1 decade- patient reports some difficulty with penetratio n since becoming sexually active- no vulvar irritation , masses, hymenal remnant to explain discomfort - +vulvar/va ginal atrophy and narrow introitus, likely cause of discomfort - recommend vaginal estrogen cream x1 month, if still having discomfort , recommend vaginal dilators to increase introitus diameter- patient agreeable to plan Health Concerns Section Related Observation LastModified by Organization Detai ls LastModified Time None Recorded Concern Status LastModified by Organization Details LastModified Time None Recorded Advance Directives Directive None Recorded Payers Encounter Date Sequence Insurance Name Policy Number Policy Varela Covered Member ID Varela Member ID Guarantor Name 12/29/2022 1 [facility] [id number] Misty ceballos [id number] Misty Mcdowell Notes Date Note Type Note Provider Name and Address Organization Details Recorded Time 12/29/2022 text/html Patient presents for evaluation of pain with intercourse. She specifically has issues with penetration, no deep dyspareunia. She has tissue at front of vagina that both she and her partner feel is preventing penetration. She also reports issues with vaginal dryness. This may have been happening for over a decade, however she is not sure. 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 No hx of abnormal pap smears, last wnl 11/2022. No dysuria, hematuria; does have a history of yeast infections. DESTINY FAGAN MD [address], [place], [address], [facility] 12/29/2022 21:19:56 OBGyn Episode No OBEpisode recorded.
--- OUTSIDE RECORDS SUMMARY | 2024-06-14 00:47 | XMS_ITS | Clinical Summary ---
Author Organization [facility] [employer] Address [address] [facility] [place] [address] Care Team Providers Care Family Caseworker Name Role Phone Tia Wells RN Unavailable Unavailable Stephen Sheppard MD Unavailable [phone] Reggie Saavedra PA-C Primary Care Provider Source Comments [facility],non-owned Affiliates and Associated Physician Practices is amultiple site organization consisting of ambulatory clinics and hospital sitesin [place], [place], [place] and [place]. This disclosure is being madepursuant to the Care Everywhere program and may not contain all information available regarding this patient. Last updated 17.[facility] Allergies Active Allergy Reactions Criticality Noted Date Comments Acetaminophen-Codeine Nausea and/or Vomiting Medium Cat Hair Extract Rhinitis Low 11/20/2023 Codeine Nausea and/or Vomiting Low 11/13/2010 Dog Epithelium Rhinitis Low 11/20/2023 Penicillins Nausea and/or Vomiting Low 11/13/2010 Medications * Be aware that medications may not be up to date on this document. Alwaysverify current medications with the patient. Medication Sig Dispensed Refills Start Date End Date Status HYPERTONIC NASAL WASH NA NeilMed sinus rinse two times daily Active Milk Thistle 1000 MG CAPS Take 1 capsule by mouth once daily Active niacin, Immediate Release, 250 MG tablet Take 1 (one) tablet by mouth at bedtime Active guaiFENesin ER 12hr (MUCINEX) 600 MG tablet Take 2 tablets by mouth once daily 120 tablet 11 0 Active vitamin D3 (CHOLECALCIFEROL) 25 MCG (1000 UNITS) tablet Take by mouth once daily Active Calcium 500-125 MG-UNIT Take by mouth once daily Active [place]one-3 Fatty Acids (FISH OIL) 1200 MG Take by mouth once daily Active azelaic acid (Finacea) 15 % gel 3 Active levothyroxine (Synthroid) 100 MCG tablet Take 1 (one) tablet by mouth daily before breakfast 3 Active Ferrous Sulfate Dried (High Potency Iron) 65 MG TABS Take by mouth once daily Active azelastine-fluticason e (Dymista) 137-50 MCG/ACT nasal spray [place] 2 (two) sprays into each nostril 2 times daily 23 g 11 4 Active ipratropium (Atrovent) 0.03 % nasal spray USE 1 TO 2 SPRAYS IN EACH NOSTRIL THREE TIMES DAILY NEEDED 30 mL 11 4 Active estradiol (Estrace) 0.1 MG/GM vaginal cream INSERT 1 GRAM VAGINALLY 3 TIMES A WEEK Active Repatha SureClick 140 MG/ML auto-injector Inject 140 (one hundred forty) mg subcutaneously every 14 days Active SUMAtriptan (Imitrex) 100 MG tablet Take 1 (one) tablet by mouth once as needed Active mycophenolate (Cellcept) 500 MG tabletIndications:Aut oimmune hepatitis (HCC),residential current use of immunosuppressive drug Take 1 (one) tablet by mouth 2 times daily 180 tablet 3 4 Active RABEprazole EC (Aciphex) 20 MG tabletIndications:Gas troesophageal Reflux Disease Take 1 (one) tablet by mouth 2 times daily, before breakfast and supper Reasons: Gastroesophageal Reflux Disease 60 tablet 11 5 Active Active Problems Problem Noted Date Diagnosed Date Pure hypercholesterolemia 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; Gastroesophageal reflux disease, unspecified whether esophagitis present 04/12/2024 Orders Only [facility] - GI [address] [place] [address] Ed Weinstein MD Gastroesophageal reflux disease, unspecified whether esophagitis present from Last 3 Months Immunizations Name Administration Dates Next Due Covid Pfizer primary monoval ent 12+ yr 0.3mL Purple cap 05/23/2021,04/25/2020,04/04/2020 INFLUENZA VACCINE 12/25/2020,12/14/2018 Family History Medical History Relation Name Comments CVA Father Cancer Father Status: d Diabetes Father Heart Disease Father Cataract Maternal Grandmother Diabetes Mother Status: d Glaucoma Mother Hypertension Mother Liver Disease Mother Diabetes Sister 1 Heart Disease Sister 2 Relation Name Status Comments Father Maternal Grandmother Mother Sister 1 Sister 2 Social History Tobacco Use Types Packs/Day Years Used Date Smoking Tobacco: Never Smokeless Tobacco: Never Alcohol Use Standard Drinks/Week Comments No 0.8 (1 standard drink = 0.6 oz p ure alcohol) never a heavy drinker. PHQ-2 Answer Date Recorded Patient Health Questionnaire-2 Score 0 11/13/2023 Sex and Gender Information Value Date Recorded Sex Assigned at Not on file Gender Identity Not on file Sexual Orientation Not on file Last Filed Vital Signs Vital Sign Reading Time Taken Comments Blood Pressure 107/76 11/20/2023 9:43 AM CDT Pulse 102 11/20/2023 9:43 AM CDT Temperature 36.3 C (97.3 F) 11/20/2023 9:43 AM CDT Respiratory Rate 18 11/14/2022 9:19 AM CDT Oxygen Saturation 100% 11/20/2023 9:43 AM CDT Inhaled Oxygen Concentration - - Weight 65.3 kg (144 lb) 11/20/2023 9:43 AM CDT Height 157.5 cm (5' 2 ) 11/20/2023 9:43 AM CDT Body Mass Index 26.34 11/20/2023 9:43 AM CDT Plan of Treatment Upcoming Encounters Date Type Department Care Team (Late st Contact Info) Description 12/02/2024 12:00 PM CDT Office Visit [facility] - Allergy [address] [place] [address], [place] [address] Stephen Pérez MD [address] [place] [address] [address] DIV OF ALLERGY/[place] [address] 12/02/2024 1:00 PM CDT Procedure visit [facility] - GI [address] [place] [phone] 12/02/2024 1:30 PM CDT Office Visit [facility] - GI [address] [place] [phone] Ed Weinstein MD [address] [place] [address] [address] [place] [address] Health Maintenance Due Date Last Done Comments COLOGUARD (AGES 45-75) - COLON CA SCREENING 1962 COLON MONITORING 1962 COLONOSCOPY - COLON CA SCREENING 1962 CT COLONOGRAPHY - COLON CA SCREENING 1962 Colorectal Cancer Screening 1962 FIT - COLON CA SCREENING 1962 FLEX SIG - COLON CA SCREENING 1962 MAMMOGRAM 1962 PAP SMEAR 1962 HIV SCREENING 1977 HEPATITIS C SCREENING 05/04/1980 DTAP/TDAP/TD VACCINES (1 - Tdap) 1981 PNEUMOCOCCAL VACCINE 50+ (1 of 2 - PCV) 1981 ZOSTER VACCINE (1 of 2) 1981 Respiratory Syncytial Virus (RSV) Vaccine Pt: or over 60 yrs (1 - Risk 60-74 years 1-dose series) 2022 COVID-19 VACCINE ( season) 2023 05/23/2021, 11/06/2020, 04/25/2020, Additional history exists INFLUENZA VACCINE (#1) 2023 12/25/2020, 2018 DEPRESSION SCREENING 03/16/2024 11/13/2023, 11/14/2022, 12/20/2021 SCREENING FOR DIABETES 05/24/2027 , 03/07/2024, 12/07/2023, Additional history exists LIPID TESTING 04/01/2028 04/01/2023, 10/15, 04/21/2022, Additional history exists HEPATITIS B VACCINE Aged Out No longe r eligible based on patient's age to complete this topic HIB VACCINE Aged Out No longer eligi ble based on patient's age to complete this topic HPV VACCINE Aged Out No longer eligi ble based on patient's age to complete this topic MENINGOCOCCAL (Group B) VACCINE SHARED DECISION-MAKING Aged Out No longer eligible based on patient's age to complete this topic MENINGOCOCCAL GROUPS A/C/Y/W VACCINE Aged Out No longer eligible based on patient's age to complete this topic Goals Goal Patient Goal Type Associated Problems Recent Progress Patient-Stated? Author Medication Management General On track( 9:36 AM CDT) No Misty Fuller RN Note: Expected end date: Ongoing Interventions: Take all medications as prescribed Let your doctor know right away about any changes in your medications Make sure to request a refill of your medication at least one week prior to your last dose Safety General On track( 9:36 AM CDT) No Tia Wells, JAMES Note: Expected end date: ongoing Interventions: Your nurse will assess your risk for falls/injury each visit Be aware of medications that could predispose you to falling Wear non-skid/rubber sole footwear Keep personal items within easy reach Keep walking paths clutter free and clear Maintain an unobstructed path to the bathroom Complete physical therapy Procedures Procedure Name Priority Date/Time Associated Diagnosis Comments COMPREHENSIVE METABOLIC PANEL Routine 05/23/2024 8:24 AM CDT Autoimmune hepatitis residential current use of immunosuppressive drug Gastroesophageal reflux disease, unspecified whether esophagitis present CBC W AUTO DIFFERENTIAL Routine 05/23/2024 8:24 AM CDT Autoimmune hepatitis residential current use of immunosuppressive drug Gastroesophageal reflux disease, unspecified whether esophagitis present LIPID PROFILE (EXTERAL RESULT ENTRY) Routine 04/01/2023 from Last 3 Months or Most Recently Relevant to Health Maintenance Results * CBC WITH DIFFERENTIAL (05/23/2024 8:24 AM CDT) WBC 4.8 3.4 - 10.8 x10E3/uL [facility] INSURANCE BILL RBC 4.34 3.77 - 5.28 x10E6/uL [facility] INSURANCE BILL Hemoglobin 12.8 11.1 - 15.9 g/dL [facility] INSURANCE BILL Hematocrit 39.1 34.0 - 46.6 % [facility] INSURANCE BILL MCV 90 79 - 97 fL [facility] INSURANCE BILL MCH 29.5 26.6 - 33.0 pg [facility] INSURANCE BILL MCHC 32.7 31.5 - 35.7 g/dL [facility] INSURANCE BILL RDW 13.1 11.7 - 15.4 % [facility] INSURANCE BILL Platelet Count 345 150 - 450 x10E3/uL [facility] INSURANCE BILL Granulocytes % 45 Not Estab. % [facility] INSURANCE BILL Lymphocytes % 42 Not Estab. % [facility] INSURANCE BILL Monocytes % 10 Not Estab. % [facility] INSURANCE BILL Eosinophils % 2 Not Estab. % [facility] INSURANCE BILL Basophils % 1 Not Estab. % [facility] INSURANCE BILL Granulocytes Absolute 2.2 1.4 - 7.0 x10E3/uL [facility] INSURANCE BILL Lymphocytes Absolute 2.0 0.7 - 3.1 x10E3/uL [facility] INSURANCE BILL Monocytes Absolute 0.5 0.1 - 0.9 x10E3/uL [facility] INSURANCE BILL Eosinophils Absolute 0.1 0.0 - 0.4 x10E3/uL [facility] INSURANCE BILL Basophils Absolute 0.0 0.0 - 0.2 x10E3/uL [facility] INSURANCE BILL Immature Granulocytes 0 Not Estab. % [facility] INSURANCE BILL Immature Granulocytes Absolute 0.0 0.0 - 0.1 x10E3/uL [facility] INSURANCE BILL Blood BLOOD SPECIMEN / Unknown 05/23/2024 8:24 AM CDT 05/23/2024 Narrative [facility] INSURANCE BILL - 05/24/2024 7:09 AM CDT Performed at: 01 - [facility] [address] [place], [place] [id number] Soap Grinder: Deyvi Hills PhD, Phone: [phone] Ed Weinstein MD LAB - HEMATOLOGY ORD ERABLES [facility] INSURANCE BILL [address] [place] [address] * COMPREHENSIVE METABOLIC PANEL (05/23/2024 8:24 AM CDT) Glucose 86 70 - 99 mg/dL [facility] INSURANCE BILL BUN 9 8 - 27 mg/dL [facility] INSURANCE BILL Creatinine 0.75 0.57 - 1.00 mg/dL [facility] INSURANCE BILL eGFR by CKD-EPI 90 >59 mL/min/1.7 3 [facility] INSURANCE BILL BUN/Creatinine Ratio 12 12 - 28 [facility] INSURANCE BILL Sodium 141 134 - 144 mmol/L [facility] INSURANCE BILL Potassium 4.7 3.5 - 5.2 mmol/L [facility] INSURANCE BILL Chloride 103 96 - 106 mmol/L [facility] INSURANCE BILL CO2 25 20 - 29 mmol/L [facility] INSURANCE BILL Calcium 9.7 8.7 - 10.3 mg/dL [facility] INSURANCE BILL Protein Total 6.7 6.0 - 8.5 g/dL [facility] INSURANCE BILL Albumin 4.2 3.9 - 4.9 g/dL [facility] INSURANCE BILL Globulin Total 2.5 1.5 - 4.5 g/dL [facility] INSURANCE BILL Bilirubin Total 0.3 0.0 - 1.2 mg/dL [facility] INSURANCE BILL Alkaline Phosphatase 94 44 - 121 IU/L [facility] INSURANCE BILL AST 24 0 - 40 IU/L [facility] INSURANCE BILL ALT 17 0 - 32 IU/L [facility] INSURANCE BILL Blood BLOOD SPECIMEN / Unknown 05/23/2024 8:24 AM CDT 05/23/2024 Narrative [facility] INSURANCE BILL - 05/24/2024 7:09 AM CDT Performed at: - [address] [id number] Soap Grinder: Deyvi Hills PhD, Phone: [phone] Ed Weinstein MD LAB - CHEMISTRY SLAVA CARRILLO Performing Organization Address [facility]/ZIP Co de Phone Number [facility] INSURANCE BILL [address] [place] [address] * (ABNORMAL) LIPID PROFILE (EXTERAL RESULT ENTRY) (04/01/2023) Cholesterol (EXTERNAL RESULT) 267(A) mg/dL [facility] INSURANCE BILL Triglycerides (EXTERNAL RESULT) 136 mg/dL [facility] INSURANCE BILL HDL (EXTERNAL RESULT) 69 mg/dL [facility] INSURANCE BILL LDL (EXTERNAL RESULT) 174(A) mg/dL [facility] INSURANCE BILL VLDL (EXTERNAL RESULT) 24 mg/dL [facility] INSURANCE BILL Chol HDL Ratio (External Result) [facility] INSURANCE BILL Blood BLOOD SPECIMEN / Unknown 04/01/2023 Historical Provider LAB - CHEMISTRY Dexter ROUSE Performing Organization Address [facility]/ZIP Co de Phone Number [facility] INSURANCE BILL [address] [place] [address] from Last 3 Months or Most Recently Relevant to Health Maintenance Care Teams Family Caseworker Relationship Specialty Start Date End Date Reggie Saavedra PA-C [address] [place] [phone] PCP - General Physician Street Photographer 11/14/22 Tia Wells, JAMES Registered Nurse Hepatology 09/09/19 Stephen Sheppard MD [address] [place], [place] [id number] Gastroenterology 09/09/19
[2024-06-14 11:42] VITALS: BP 137/78; PULSE 81; RESP 18; TEMP 36; O2SAT 100; BMI 26.6
[2024-06-14] MEDS: LACTATED RINGERS 1,000 ML 150 ML IV CONT (11:45)
--- NOTE | 2024-06-14 12:03 | WPDANESEPPF ---
Anes - Initial Pre Proc Eval Procedure: Operation Date: 06/14/24 13:00 Proposed Procedures p Esophagogastroduodenoscopy - Aleksander Khalil MD Date/Time: 06/14/24 12:03 Surgeon: Aleksander Khalil MD Pre Op Diagnosis: GERD Patient Data Age: 64 Gender: F Height: 1.57 m Weight: 66.1 kg Last Vital Signs Temp 96.8 F L 06/14/24 11:42 Pulse 81 06/14/24 11:42 Resp 18 06/14/24 11:42 BP 137/78 06/14/24 11:42 Pulse Ox 100 06/14/24 11:42 O2 Del Method Room Air 06/14/24 11:42 Allergies Allergy/AdvReac Type Severity Reaction Status Date / Time cat dander Allergy Unknown unknown Verified 06/14/24 11:40 cefuroxime Allergy Unknown GI upset Verified 06/14/24 11:40 codeine Allergy Unknown Unknown Verified 06/14/24 11:40 dog dander Allergy Unknown unknown Verified 06/14/24 11:40 Penicillins Allergy Unknown Unknown Verified 06/14/24 11:40 [place]bon pecan coffee AdvReac Mild Rash Uncoded 06/14/24 11:40 Home Medications ?Medication ?Instructions ?Recorded ?Confirmed ?Type azelastine 137 mcg-fluticasone 50 137 spray intranasal BID 08/25/19 06/14/24 History mcg/spray nasal spray (Dymista) cholecalciferol (vitamin D3) 25 25 mcg PO DAILY 08/25/19 06/14/24 History mcg (1,000 unit) tablet (Vitamin D3) mycophenolate mofetil 500 mg 1,000 mg PO DAILY 08/25/19 06/14/24 History tablet (CellCept) ipratropium bromide 17 2 puff inhalation TID 01/16/22 06/14/24 History mcg/actuation HFA aerosol inhaler (Atrovent HFA) azelaic acid 15 % topical gel 1 applic topical DAILY PRN rosacea 09/26/22 06/14/24 History ipratropium bromide 21 mcg (0.03 2 spray intranasal DAILY 09/26/22 06/14/24 History %) nasal spray milk thistle 175 mg tablet 175 mg PO DAILY 12/25/22 06/06/24 History niacin 250 mg tablet 250 mg PO DAILY 12/25/22 06/14/24 History omeprazole 10 mg capsule,delayed 20 mg PO DAILY 12/25/22 06/14/24 History release omeprazole 40 mg capsule,delayed 40 mg PO DAILY #90 caps 02/16/24 06/14/24 Rx release evolocumab 140 mg/mL subcutaneous 140 mg subcut .COMPLEX #2 mL 02/23/24 06/06/24 Rx pen injector (Jaime Simon) levothyroxine 100 mcg tablet 100 mcg PO DAILY #90 tabs 06/01/24 06/14/24 Rx estradiol 0.01% (0.1 mg/gram) 1 appful vaginal WEEKLY 06/06/24 06/06/24 History vaginal cream Patient hx anesthesia problems: none Family hx anesthesia problems: none Results Review: All pre-operative results and documents have been reviewed as part of the pre-operative evaluation. [facility] Past Medical History Medical History Obstructive sleep apnea Hepatitis C antibody test negative (09/25/17) Autoimmune hepatitis Mixed hyperlipidemia Hypothyroidism Family History Family History Mother Family history of hepatitis, Onset Age: 78 Diabetes mellitus Family history of hypercholesterolemia Depression Family history of glaucoma Father Family history of malignant neoplasm of skin, Onset Age: 74 Family history of cardiovascular disease Cerebrovascular accident Sibling Diabetes mellitus Family history of glaucoma Family history of cardiovascular disease Grandparent Family history of glaucoma Other Family history of elevated blood lipids Social History Social History Social History: Caffeine-coffee Smoking status: Never smoker Alcohol intake: never Substance use: never Substance use type: does not use Gender identity (if verbalized by the patient): Female Anes - Eval Final PreProcedure Day of Procedure 06/14/24 12:03 Patient weight: normal Lungs: normal air movement Airway: Mallampati scale class III Neurological: alert and oriented Last oral intake: >/= 8 hours ASA classification: II Emergent: no Anesthetic plan: proceed Anesthesia type and monitoring: general GIVS and standard monitoring Results Review: All pre-operative results and documents have been reviewed as part of the pre-operative evaluation. Hypothyroidism, EUGENIA no CPAP, pt uses dental device. GERD. Of note, stress test 03/08 nml perfusion, nml LVEF. Informed Consent: The patient's anesthetic plan and its attendant risks and benefits were discussed with the patient/family/POA. Questions were solicited and answers provided to the satisfaction of the patient/family/POA.
--- NOTE | 2024-06-14 12:12 | PM.HPGS ---
History of Present Illness History of Present Illness Consent: Risks, benefits, and alternatives have been discussed and questions answered. Patient agrees to proceed with procedure. Chief complaint: GERD Narrative: Misty Moore is a 64 year old female with symptomatic gerd better after stop drinking coffee and using omeprazole OTC Review of Systems Review of Systems: All systems reviewed & are unremarkable except as noted in HPI and below PMFSH Past Medical History Medical History Obstructive sleep apnea Hepatitis C antibody test negative (09/25/17) Autoimmune hepatitis Mixed hyperlipidemia Hypothyroidism Family History Family History Mother Family history of hepatitis, Onset Age: 78 Diabetes mellitus Family history of hypercholesterolemia Depression Family history of glaucoma Father Family history of malignant neoplasm of skin, Onset Age: 74 Family history of cardiovascular disease Cerebrovascular accident Sibling Diabetes mellitus Family history of glaucoma Family history of cardiovascular disease Grandparent Family history of glaucoma Other Family history of elevated blood lipids Social History Social History Social History: Caffeine-coffee Smoking status: Never smoker Alcohol intake: never Substance use: never Substance use type: does not use Gender identity (if verbalized by the patient): Female Meds Home Medications and Allergies Home Medications ?Medication ?Instructions ?Recorded ?Confirmed ?Type azelastine 137 mcg-fluticasone 50 137 spray intranasal BID 08/25/19 06/14/24 History mcg/spray nasal spray (Dymista) cholecalciferol (vitamin D3) 25 25 mcg PO DAILY 08/25/19 06/14/24 History mcg (1,000 unit) tablet (Vitamin D3) mycophenolate mofetil 500 mg 1,000 mg PO DAILY 08/25/19 06/14/24 History tablet (CellCept) ipratropium bromide 17 2 puff inhalation TID 01/16/22 06/14/24 History mcg/actuation HFA aerosol inhaler (Atrovent HFA) azelaic acid 15 % topical gel 1 applic topical DAILY PRN rosacea 09/26/22 06/14/24 History ipratropium bromide 21 mcg (0.03 2 spray intranasal DAILY 09/26/22 06/14/24 History %) nasal spray milk thistle 175 mg tablet 175 mg PO DAILY 12/25/22 06/06/24 History niacin 250 mg tablet 250 mg PO DAILY 12/25/22 06/14/24 History omeprazole 10 mg capsule,delayed 20 mg PO DAILY 12/25/22 06/14/24 History release omeprazole 40 mg capsule,delayed 40 mg PO DAILY #90 caps 02/16/24 06/14/24 Rx release evolocumab 140 mg/mL subcutaneous 140 mg subcut .COMPLEX #2 mL 02/23/24 06/06/24 Rx pen injector (Jaime Simon) levothyroxine 100 mcg tablet 100 mcg PO DAILY #90 tabs 06/01/24 06/14/24 Rx estradiol 0.01% (0.1 mg/gram) 1 appful vaginal WEEKLY 06/06/24 06/06/24 History vaginal cream Allergies Allergy/AdvReac Type Severity Reaction Status Date / Time cat dander Allergy Unknown unknown Verified 06/14/24 11:40 cefuroxime Allergy Unknown GI upset Verified 06/14/24 11:40 codeine Allergy Unknown Unknown Verified 06/14/24 11:40 dog dander Allergy Unknown unknown Verified 06/14/24 11:40 Penicillins Allergy Unknown Unknown Verified 06/14/24 11:40 [place]bon pecan coffee AdvReac Mild Rash Uncoded 06/14/24 11:40 Vital Signs Vital Signs - 24 hr 06/14/24 11:42 Temperature 96.8 F L Pulse Rate 81 Respiratory Rate 18 Blood Pressure 137/78 Pulse Oximetry 100 Oxygen Delivery Room Air Exam Const: General: comfortable and no acute distress HENMT: Face/Nose/Sinus: Normal nares present Eyes: General: appearance normal, both eyes and all related structures Neck: Neck: no JVD Resp: Auscultation: clear to auscultation bilaterally Cardio: Rate: regular rate Rhythm: regular rhythm GI: Inspection: non-distended GI Palp: Yes Soft to palpation Skin: General skin exam: normal color Neuro: General: gait normal Speech: normal speech Extrem: General: normal to inspection Psych: Mental Status: mental status grossly normal Assessment and Plan Assessment and plan (1) GERD (gastroesophageal reflux disease): Code(s): K21.9 - Gastro-esophageal reflux disease without esophagitis Status: Acute Assessment and Plan: egd with bx
[2024-06-14 12:23] VITALS: BP 105/66; PULSE 81; RESP 18; O2SAT 100
[2024-06-14 12:33] VITALS: BP 120/72; PULSE 76; RESP 14; O2SAT 97
[2024-06-14 12:43] VITALS: BP 115/78; PULSE 73; RESP 19; O2SAT 100
== END 2024-06-14 12:50 | disposition home or self-care (01) ==
PROVIDERS: PCP Nurse Practitioner Family; Referring Provider Nurse Practitioner Family; Visit Provider Internal Medicine Gastroenterology
PROC: 0DJ08ZZ Inspection of Upper Intestinal Tract, Via Natural or Artificial Opening Endoscopic (ICD-10-PCS; CPT 43239; principal; 2024-06-14 13:00)
DX: K21.9 Gastro-esophageal reflux disease without esophagitis (principal); K44.9 Diaphragmatic hernia without obstruction or gangrene; G47.33 Obstructive sleep apnea (adult) (pediatric); E78.2 Mixed hyperlipidemia; E03.9 Hypothyroidism, unspecified; K75.4 Autoimmune hepatitis; Z79.51 Long term (current) use of inhaled steroids; Z79.85 Long-term (current) use of injectable non-insulin antidiabetic drugs; Z84.0 Family history of diseases of the skin and subcutaneous tissue; Z82.49 Family history of ischemic heart disease and other diseases of the circulatory system
CPT/HCPCS: 43239; 88305; J2003; J2704; J7120

== ENCOUNTER 2024-08-10 09:39 | Outpatient (CLI) | payer OTHER, SELFPAY ==
--- NOTE | ~2024-08-10 | XR_ITS ---
Lumbosacral Spine: AP and lateral views Clinical History: Pain Findings: The normal lordotic curve is maintained. No fracture seen. There is 5 mm anterolisthesis of L4 over L5. There is advanced facet arthropathy, especially from L4 through S1. There are mild degen erative disc changes. The sacroiliac joints are normally outlined. Impression: 5 mm anterolisthesis of L4 over L5. Extensive facet arthropathy, as above. Reviewed, dictated and finalized at location M. Impression: 5 mm anterolisthesis of L4 over L5. Extensive facet arthropathy, as above.
== END 2024-08-10 09:40 | disposition home or self-care (01) ==
PROVIDERS: PCP Nurse Practitioner Family; Visit Provider Nurse Practitioner Family
DX: M43.16 Spondylolisthesis, lumbar region (principal); M47.817 Spondylosis without myelopathy or radiculopathy, lumbosacral region
CPT/HCPCS: 72100

== ENCOUNTER 2025-01-25 01:34 | Day surgery (SDC) | payer OTHER, SELFPAY ==
[2025-01-23 09:43] VITALS: BMI 27.0
--- OUTSIDE RECORDS SUMMARY | 2025-01-25 01:37 | XMS_ITS | Clinical Summary ---
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 This disclosure is being madepursuant to the [...] document. Alwaysverify current medications with the patient. HYPERTONIC NASAL WASH NA NeilMed sinus rinse two times daily Active niacin, Immediate Release, 250 MG tablet Take 1 (one) tablet by mouth at bedtime Active guaiFENesin ER 12hr (MUCINEX) 600 MG tablet Take 2 tablets by mouth once daily 120 tablet 11 020 Active vitamin D3 (CHOLECALCIFEROL) 25 MCG (1000 UNITS) tablet Take by mouth once daily Active Calcium 500-125 MG-UNIT Take by mouth once daily Active [place]-3 Fatty Acids (FISH OIL) 1200 MG Take by mouth once daily Active azelaic acid (Finacea) 15 % gel 023 Active levothyroxine (Synthroid) 100 MCG tablet Take 1 (one) tablet by mouth daily before breakfast 023 Active estradiol (Estrace) 0.1 MG/GM vaginal cream INSERT 1 GRAM VAGINALLY 3 TIMES A WEEK Active Repatha SureClick 140 MG/ML auto-injector Inject 140 (one hundred forty) mg subcutaneously every 14 days Active mycophenolate (Cellcept) 500 MG tabletIndications:Au toimmune hepatitis (HCC),intermediate card tender current use of immunosuppressive drug Take 1 (one) tablet by mouth 2 times daily 180 tablet 3 024 Active clobetasol (Temovate) 0.05 % cream Apply to affected area 2 times daily 025 Active azelastine-fluticaso ne (Dymista) 137-50 MCG/ACT nasal spray [place] 2 (two) sprays into each nostril 2 times daily 23 g 11 025 Active ipratropium (Atrovent) 0.03 % nasal spray USE 1 TO 2 SPRAYS IN EACH NOSTRIL THREE TIMES DAILY NEEDED 30 mL 11 025 Active omeprazole (PriLOSEC) 40 MG capsule Take 1 (one) capsule by mouth daily before breakfast 024 Active Active Problems Problem Noted Date Diagnosed Date History of colon polyps 12/13/2024 Pure hypercholesterolemia 11/21/2021 intermediate card tender current use of immunosuppressive drug 09/09/2019 Gastroesophageal reflux disease 04/06/2019 Autoimmune hepatitis 12/29/2017 Overview (12/06/2024): 12/02/24 Fibroscan CAP 291, LSM 3.4 kPa Non-allergic rhinitis 12/04/2017 Hyperlipidemia 12/04/2017 Hypothyroidism 12/04/2017 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 Resolved Problems Problem Noted Date Diagnosed Date Resolved Date Chronic rhinitis 02/21/2014 12/04/2017 Chronic sinusitis 11/13/2010 12/04/2017 Encounters Date Type Department Care Team Description 12/02/2024 1:30 PM CDT Office Visit [facility] - GI [address] [place] [phone] Ed Weinstein MD Autoimmune hepatitis (HCC) (Primary Dx); retirement current use of immunosuppressive drug; Gastroesophageal reflux disease, unspecified whether esophagitis present 12/02/2024 1:00 PM CDT Procedure visit [facility] - GI [address] [place] [phone] Ed Weinstein MD Autoimmune hepatitis (HCC) ; NAFLD (nonalcoholic fatty liver disease) 12/02/2024 12:00 PM CDT Office Visit [facility] - Allergy [address] [place] [phone] Stephen Pérez MD Non-allergic rhinitis (Primary Dx); Gastroesophageal reflux disease, unspecified whether esophagitis present 12/02/2024 Travel 11/15/2024 Orders Only [facility] - [facility] [address] [place] [phone] Aster Pedroza RN Autoimmune hepatitis (HCC) from Last 3 Months Immunizations Immunization Administration Dates Next Due CovNeighborhoods primary monoval ent 12+ yr 0.3mL Purple [...] Date Smoking Tobacco: Never Smokeless Tobacco: Never Tobacco Cessation:Counseling Given: Not Answered Alcohol Use Standard Drinks/Week Comments No 0.8 (1 standard drink = 0.6 oz p ure alcohol) never a heavy drinker. 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 Gender Identity Not on file Sexual Orientation Not on file Last Filed Vital Signs Vital Sign Reading Time Taken Comments Blood Pressure 141/76 12/02/2024 1:55 PM CDT Pulse 72 12/02/2024 1:55 PM CDT Temperature 36.9 C (98.4 F) 12/02/2024 1:55 PM CDT Respiratory Rate 18 12/02/2024 12:23 PM CDT Oxygen Saturation 100% 12/02/2024 1:55 PM CDT Inhaled Oxygen Concentration - - Weight 67.6 kg (149 lb) 12/02/2024 1:55 PM CDT Height 157.5 cm (5' 2) 12/02/2024 1:55 PM CDT Body Mass Index 27.25 12/02/2024 1:55 PM CDT Plan of Treatment Upcoming Encounters Date Type Department Care Team (Late st Contact Info) Description 12/08/2025 12:00 PM CDT Office Visit [facility] - Allergy [address] [place] [phone] Stephen Pérez MD [address] [place] [address] 2L DIV OF ALLERGY/[place] [address] 12/08/2025 1:30 PM CDT Office Visit [facility] - GI [address] [place] [phone] Ed Weinstein MD [address] [place] [address] [address] [place] [address] Health Maintenance Due Date Last Done Comments COLOGUARD (AGES 45-75) - COLON CA SCREENING 1962 COLON MONITORING 1962 COLONOSCOPY - COLON CA SCREENING 1962 CT COLONOGRAPHY - COLON CA SCREENING 1962 Colorectal Cancer Screening 1962 FIT - COLON CA SCREENING 1962 FLEX SIG - COLON CA SCREENING 1962 MAMMOGRAM 1962 HIV SCREENING 1977 HEPATITIS C SCREENING 05/04/1980 DTAP/TDAP/TD VACCINES (1 - Tdap) 1981 PNEUMOCOCCAL VACCINE 50+ (1 of 2 - PCV) 1981 ZOSTER VACCINE (1 of 2) 1981 PAP SMEAR 1983 Respiratory Syncytial Virus (RSV) Vaccine Pt: or over 60 yrs (1 - Risk 60-74 years 1-dose series) 2022 DEPRESSION SCREENING 03/16/2024 11/13/2023, 11/14/2022, 12/20/2021 COVID-19 VACCINE ( season) 2024 11/25/2021, 05/23/2021, 11/06/2020, Additional history exists INFLUENZA VACCINE (#1) 2024 3, 11/25/2021, 12/25/2020, Additional history exists SCREENING FOR DIABETES 11/16/2027 5, 08/18/2024, 05/23/2024, Additional history exists LIPID TESTING 04/01/2028 04/01/2023, [...] Patient-Stated? Author Medication Management General On track( 025 1:59 PM CDT) Dylan Morrissey, RN Note: Expected end date: Ongoing Interventions: Take all medications as prescribed Let your doctor know right away about any changes in your medications Make sure to request a refill of your medication at least one week prior to your last dose Safety General On track( 025 1:59 PM CDT) No Tia Wells, JAMES Note: Expected [...] Procedure Name Priority Date/Time Associated Diagnosis Comments OK LIVER ELASTOGRAPHY Routine 12/02/2024 1:41 PM CDT Autoimmune hepatitis (HCC) retirement current use of immunosuppressive drug Gastroesophageal reflux disease, unspecified whether esophagitis present COMPREHENSIVE METABOLIC PANEL Routine 11/15/2024 9:33 AM CDT Autoimmune hepatitis (HCC) CBC W AUTO DIFFERENTIAL Routine 11/15/2024 9:33 AM CDT Autoimmune hepatitis (HCC) LIPID PROFILE (EXTERAL RESULT ENTRY) Routine 04/01/2023 from Last 3 Months or Most Recently Relevant to Health Maintenance Results * PROC FIBROSCAN (12/02/2024 1:41 PM CDT) Narrative Usama Mitchell MD - 12/02/2024 1:41 PM CDT Usama Mitchell MD 12/06/2024 12:08 PM Diagnosis: Autoimmune hepatitis (HCC), retirement current use of immunosuppressive drug, Gastroesophageal reflux disease, unspecified whether esophagitis present RN verified patient NPO for prior 3 hours. Procedure explained. Date of Exam: 12/02/2024 Liver Stiffness: (LSM, kPa) median: 3.4 IQR/Median% (ideally < 30%): 13% CAP (controlled attenuation parameter): 291 Technical Difficulty: None Ordering Provider: Ed Weinstein MD Phone Fax Fibroscan interpretation: I have personally reviewed the Fibroscan report and associated tracings. The calculated Liver Stiffness Measurement (LSM, kPa) indicates that: The probability of advanced liver fibrosis is: low. The loss of ultrasound signal, (controlled attenuation parameter, CAP [dB/m]), indicates that the probability of hepatic steatosis is: high. Usama Cabrera MD The following criteria are used to indicate the probability of advanced (stage 3-4) fibrosis: < 7.0 kPa: low 7.0-8.9 kPa: low to moderate 9.0-14.9 kPa: moderate 15-20 kPa: high > 20 kPa: very high Liver stiffness > 12 kPa is associated with an increased risk of cirrhosis-related complications over the next 3-5 years (Noemy, 2022). Liver stiffness > 20 kPa is also associated with a high probability of complications of portal hypertension including varices and ascites. Liver stiffness > 50 kPa is associated with a high risk of variceal bleeding. These interpretations are based on the following published data: Noemy J, Toni m H, Ekaddis M, Navid C, Bonadae M, Cure S, Ampmodestoo J, Nasr P, Tall L, Canivet CM, Kechagiapaloma S, S nchez Y, Dincujudy E, Agustín A, Elinor M, Riou J, Trybailey A and Dunlap-Rogers M. Non-invasive tests accurately stratify patients with NAFLD based on their risk of liver-related events. J Hepatol (2021) 76: 4816-1634. Farhad PJ, Marco M, Karishma M, et al. Accuracy of FibroScan controlled attenuation parameter and liver stiffness measurement in assessing steatosis and fibrosis in patients with nonalcoholic fatty liver disease. Gastroenterology 2019;156:5711-6527. Silvia MS, Ana R, Van Ivett ML, et al. Vibration-controlled transient elastography to assess fibrosis and steatosis in patients with nonalcoholic fatty liver disease. Clin Gastroenterol Hepatol 2019;17:156-163. Note that scores have been developed that incorporate the Fibroscan liver stiffness measurement from large cohorts of patients with liver biopsies to further refine the ability of Fibroscan to identify patients with MASH and advanced fibrosis. These include the FAST (Fibroscan-AST) score (Woreta, 2022) and the Agile3+ and Agile4 scores (Sangladis, 2023; Denise, 2024). Isaiah TA, Van Ivett ML, Ramez M, Jl A, et al. Validation of the accuracy of the FAST score for detecting patients with at-risk nonalcoholic steatohepatitis (ELIZABETH) in a [place] cohort and comparison to other non-invasive algorithms. PLoS ONE (2021) 17: [id number]. Gely AJ, Josh J, Edmundo ZM, et al. Enhanced diagnosis of advanced fibrosis and cirrhosis in individuals with NAFLD using FibroScan-based Agile scores. J Hepatol (2022) 78: 247-259. Denise et al. Vibration-controlled transient elastography scores to predict liver-related events in steatotic liver disease. DOMINGO (2023) 331: 5529-8298 Fibroscan LSM can also be used with laboratory parameters without formulas to assess prognosis. According to the Baveno-VII criteria (Sharpe, 202), Fibroscan LSM <=15 kPa plus a platelet count of >=317v403/L rules out clinically significant portal hypertension (sensitivity and negative predictive value >90%) in patients with compensated advanced chronic liver disease. Sharpe R, Lauryn J, Mike G, Gaby T, Chau C on behalf of the Baveno VII Faculty. Baveno VII--Renewing consensus in portal hypertension. J Hepatol (2021) 76: 959-974 Assessing the likelihood of advanced fibrosis in patients with intermediate liver stiffness measurement (LSM) by Fibroscan (e.g., 8-15 kPa) can be improved by also calculating the FIB-4 score (Emmanueluke et al. Hepatology Communications 2019;3:6857-6574) or NAFLD Fibrosis score (Kilgore et al. Clinical Gastroenterology and Hepatology 2019;17:6775-0660 using routine clinical data. Notes: 1. Fibroscan cannot reliably identify earlier stages of fibrosis (ie distinguish F0 from F1 and F2) and thus a histologic stage cannot be predicted from the Fibroscan reading. 2. Liver stiffness can be increased by factors other than fibrosis including passive congestion, infiltrative processes, active alcoholism, recent moderate alcohol consumption in the 2 weeks before the exam, biliary obstruction and marked inflammation. The interpretation of the Fibroscan result provided above may not have taken such clinical factors into account. 3. Identifying steatosis by an elevated CAP score (> 250 db/m) is useful for establishing a diagnosis of steatotic liver disease. However the severity of steatosis does not correlate with liver related outcomes. Disease etiology also influences Fibroscan cutoff values for fibrosis stages and the following cutoffs have been proposed (Torito et al, Clin Gastro Hepatol 2015; 13:27-36): Cutoffs for Stage 3 and Stage 4 fibrosis respectively: Hepatitis B: >9 and >11.7 kPa Hepatitis C: >9.5 and >12.5 kPa HCV-HIV: >11 and >14 kPa Cholestatic liver diseases: >10 and >17.9 kPa MASLD/MASH: >10 and >14 kPa CAP estimates of steatosis: normal <200 dB/m mild 200 to 250 dB/m moderate 250-290 dB/m substantial > 290 dB/m (Note that Fibroscan is not a quantitative measure of liver fat.) These criteria are estimates and may change as additional supporting data becomes available. (This additional interpretive data was last updated 03/18/24.) [email or web address] Ed Weinstein MD PROCEDURE/MINOR SURGICAL ORDER SILVIANO Edited Result - Final * CBC W/ DIFFERENTIAL (11/15/2024 9:33 AM CDT) WBC 4.8 3.4 - 10.8 x10E3/uL [facility] INSURANCE BILL RBC 4.31 3.77 - 5.28 x10E6/uL [facility] INSURANCE BILL Hemoglobin 12.5 11.1 - 15.9 g/dL [facility] INSURANCE BILL Hematocrit 39.0 34.0 - 46.6 % [facility] INSURANCE BILL MCV 91 79 - 97 fL [facility] INSURANCE BILL MCH 29.0 26.6 - 33.0 pg [facility] INSURANCE BILL MCHC 32.1 31.5 - 35.7 g/dL [facility] INSURANCE BILL RDW 13.3 11.7 - 15.4 % [facility] INSURANCE BILL Platelet Count 328 150 - 450 x10E3/uL [facility] INSURANCE BILL Granulocytes % 51 Not Estab. % [facility]UR[facility] BILL Lymphocytes % 36 Not Estab. % [facility]URANCE BILL Monocytes % 10 Not Estab. % [facility] INSURANCE BILL Eosinophils % 2 Not Estab. % [facility] INSURANCE BILL Basophils % 1 Not Estab. % [facility] INSURANCE BILL Granulocytes Absolute 2.5 1.4 - 7.0 x10E3/uL [facility] INSURANCE BILL Lymphocytes Absolute 1.8 0.7 - 3.1 x10E3/uL [facility] INSURANCE BILL Monocytes Absolute 0.5 0.1 - 0.9 x10E3/uL [facility] INSURANCE BILL Eosinophils Absolute 0.1 0.0 - 0.4 x10E3/uL [facility] INSURANCE BILL Basophils Absolute 0.0 0.0 - 0.2 x10E3/uL [facility] INSURANCE BILL Immature Granulocytes 0 Not Estab. % [facility] INSURANCE BILL Immature Granulocytes Absolute 0.0 0.0 - 0.1 x10E3/uL [facility] INSURANCE BILL Blood BLOOD SPECIMEN / Unknown 11/15/2024 9:33 AM CDT 11/15/2024 Narrative [facility] INSURANCE BILL - 11/16/2024 7:09 AM CDT Performed at: [address] [place] [id number] Heater Operator: Deyvi Hills PhD, Phone: [phone] us Ed Weinstein MD LAB - HEMATOLOGY ORDERABLES Fi nal Result [facility] INSURANCE BILL [address] [place] [address] * (ABNORMAL) COMPREHENSIVE METABOLIC PANEL (11/15/2024 9:33 AM CDT) Glucose 83 70 - 99 mg/dL [facility] INSURANCE BILL BUN 13 8 - 27 mg/dL [facility]UR[facility] BILL Creatinine 0.73 0.57 - 1.00 mg/dL [facility] INSURANCE BILL eGFR by CKD-EPI 93 >59 mL/min/1.7 3 [facility] INSURANCE BILL BUN/Creatinine Ratio 18 12 - 28 [facility] INSURANCE BILL Sodium 140 134 - 144 mmol/L [facility] INSURANCE BILL Potassium 4.6 3.5 - 5.2 mmol/L [facility] INSURANCE BILL Chloride 101 96 - 106 mmol/L [facility] INSURANCE BILL CO2 18(L) 20 - 29 mmol/L [facility] INSURANCE BILL Calcium 9.7 8.7 - 10.3 mg/dL [facility] INSURANCE BILL Protein Total 7.0 6.0 - 8.5 g/dL [facility] INSURANCE BILL Albumin 4.3 3.9 - 4.9 g/dL [facility]UR[facility] BILL Globulin Total 2.7 1.5 - 4.5 g/dL [facility] INSUR[facility] BILL Bilirubin Total 0.4 0.0 - 1.2 mg/dL [facility] INSURANCE BILL Alkaline Phosphatase 95 44 - 121 IU/L [facility] INSURANCE BILL Comment: Effective November 28, 2024 Alkaline Phosphatase reference interval will be changing to: Age Male Female 0 - 5 days 47 - 127 47 - 127 6 - 10 days 29 - 242 29 - 242 11 - 20 days 109 - 357 109 - 357 21 - 30 days 94 - 494 94 - 494 1 - 2 months 149 - 539 149 - 539 3 - 6 months 131 - 452 131 - 452 7 - 11 months 117 - 401 117 - 401 12 months - 6 years 158 - 369 158 - 369 7 - 12 years 150 - 409 150 - 409 13 years 156 - 435 78 - 227 14 years 114 - 375 64 - 161 15 years 88 - 279 56 - 134 16 years 74 - 207 51 - 121 17 years 63 - 161 47 - 113 18 - 20 years 51 - 125 42 - 106 21 - 50 years 47 - 123 41 - 116 51 - 80 years 49 - 135 51 - 125 >80 years 48 - 129 48 - 129 AST 20 0 - 40 IU/L [facility] INSURANCE BILL ALT 16 0 - 32 IU/L [facility] INSURANCE BILL Blood BLOOD SPECIMEN / Unknown 11/15/2024 9:33 AM CDT 11/15/2024 Narrative [facility] INSURANCE BILL - 11/16/2024 9:11 AM CDT Performed at: 01 - [facility] [address] [place], [place] [id number] Heater Operator: Deyvi Hills PhD, Phone: [phone] Ed Weinstein MD LAB - CHEMISTRY ORDERABLES Fin al Result [facility] INSURANCE BILL [address] [place] [address] * (ABNORMAL) LIPID PROFILE (EXTERAL RESULT ENTRY) (04/01/2023) Cholesterol (EXTERNAL RESULT) 267(A) mg/dL [facility] INSURANCE BILL Triglycerides (EXTERNAL RESULT) 136 mg/dL [facility] INSURANCE BILL HDL (EXTERNAL RESULT) 69 mg/dL [facility] INSURANCE BILL LDL (EXTERNAL RESULT) 174(A) mg/dL [facility] INSURANCE BILL VLDL (EXTERNAL RESULT) 24 mg/dL [facility] INSURANCE BILL Chol HDL Ratio (External Result) [facility] INSURANCE BILL Blood BLOOD SPECIMEN / Unknown 04/01/2023 us Historical Provider LAB - CHEMISTRY ORDERABLE S Final Result [facility] INSURANCE BILL [address] [place] [address] from Last 3 Months or Most Recently Relevant to Health Maintenance Insurance [facility] Address[address] [place] [address] SELF PAY NO INSURANCE Member Subscriber Plan / Payer (Ef fective for All Dates) Name:Dylan Wolf Member ID:Not on file Relation to Subscriber:Not on file Name:DYLAN WOLF Subscriber ID:Not on file (Home) Address: [address] [place] [id number] Payer ID:Not on file Group ID:Not on file Type:Self Pay Address: [place], [place] Care Teams Flight Operations Inspector Relationship Specialty Start Date End Date Jocy Lizarraga, WOMEN'S SWIM COACH-SANDING SUPERVISOR [address] [facility] [address] [place] [phone] PCP - General Nurse Practitioner 12/22/24 Tia Wells, JAMES Registered Nurse Hepatology 09/09/19 Stephen Sheppard MD [address] [place] [address] Gastroenterology 09/09/19
--- OUTSIDE RECORDS SUMMARY | 2025-01-25 01:37 | XMS_ITS | Data Portability ---
Author Organization [facility] Address [address] [place] [address] Care Team Providers Care Customer Sales Representative Name Role Phone DULCE MARIA DAVALOS Primary Care Provider [phone] Assessment No assessment recorded. Plan of Treatment [...] 3 Date of Last Pap Smear completed [facility] 12/29/2022 10:54:42 2 Date of Last Mammogram completed [facility] 12/29/2022 10:54:42 0 completed [facility] 12/29/2022 10:54:42 0 Date of Last Colonoscopy completed [facility] 12/29/2022 10:54:42 Colonoscopy completed [facility] 12/29/2022 10:55:06 Imaging Results None recorded. Procedure Notes None recorded. Medical Equipment None Reported. Allergies Allergen ID Allergen Name Allergen Category Reaction Reaction Severity Criticality Documentation Date Start Date Code Code System Note Provider Name and Address Organization Details Recorded Time 41026 acetamino phen / codeine medicatio n nausea Not available Not available 12/29/2022 57471 9 RxNorm Apolonia Swayne null, [facility] 3 10:54:06 99109 cat dander environme nt Not available Not available Not available 12/29/2022 Apolonia Swayne null, [facility] 3 10:54:06 56677 Canis lupus familiari s extract environme nt Not available Not available Not available 12/29/2022 33570 4 RxNorm Apolonia Swayne [facility], [facility] 3 10:54:06 62388 Penicilli n Not available nausea Not available Not available 12/29/2022 70521 RxNorm Apolonia Swayne [facility], [facility] 3 10:54:06 Medications Name Sig Start [...] Body mass index (BMI) Body height Systolic And Diastolic Provider Name and Address Organization Details Last Updated DateTime 12/29/2022 73800.8 g 26.9 kg/m2 157.48 cm 128/81 mm[Hg] Apolonia Pittman [facility] 12/29/2022 10:52:48 Social History Question Answer Notes LastModified by Organizat ion Details LastModified Time Are You Blind Or Do You Have [...] Or The Highest Degree You Have Received? [id number] Information not available 12/29/2022 Are There Any [...] Functional Status Question Answer Note LastModified by Organizat ion Details LastModified Time Do you use any illicit or recreational drugs? No Information not available 12/29/2022 What is your level of alcohol consumption? None Information not available 12/29/2022 Are you able to walk independently without assistance or assistive devices? 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 Moderate Information not available 12/29/2022 Mental Status Question Answer Note LastModified by Organization D etails LastModified Time Do you feel stressed (tense, restless, nervous, or anxious, or unable to sleep at night)? [id number] Information not available 12/29/2022 Family History Relationship Description Onset Age of [...] Y High Cholesterol Y Anesthesia Complications Y Acid Reflux (GERD) Y History of abnormal pap Y Headaches Y Urinary Tract Infection Y Thyroid Problems Y Gynecological History Statement/Question [...] Diagnosis SNOMED-CT Code Diagnosis ICD10 Code Diagnosis IMO Codes Diagnosis Note [id number] DESTINY FAGAN MD [facility] [address] [address] 12/29/2022 10:35:03 12/30/2022 08:50:15 Vulval superficial dyspareunia [id number] N94.11 - unclear duration, possibly up to [...] Recorded Advance Directives Directive None Recorded Payers Insurance Date Sequence Insurance Name Policy Number Policy Varela Covered Member ID Varela Member ID Guarantor Name 12/25/2022 1 [facility] [id number] Misty ceballos [id number] Misty Mcdowell Notes Date Note Type Note [...] however she is not sure. 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 No hx of abnormal pap smears, last wnl 11/2022. No dysuria, hematuria; does have a history of yeast infections. DESTINY FAGAN MD [address], [place], [address], [place] [facility] 12/29/2022 21:19:56 OBGyn Episode No OBEpisode recorded.
[2025-01-25 07:50] VITALS: BP 118/78; PULSE 77; RESP 16; TEMP 36.1; O2SAT 100; BMI 26.6
[2025-01-25] MEDS: LACTATED RINGERS 1,000 ML 150 ML IV CONT (08:04)
--- NOTE | 2025-01-25 08:09 | P.HP_ITS ---
History of Present Illness History of Present Illness Consent: Risks, benefits, and alternatives have been discussed and questions answered. Patient agrees to proceed with procedure. Chief complaint: Personal history of colon polyps, unspecified Narrative: Misty Moore is a 64 year old female with last colonoscopy 2019, had polyps previously Review of Systems Review of Systems: All systems reviewed & are unremarkable except as noted in HPI and below PMFSH Past Medical History Medical History Obstructive sleep apnea Hepatitis C antibody test negative (09/25/17) Autoimmune hepatitis Mixed hyperlipidemia Hypothyroidism Family History Family History Mother Family history of hepatitis, Onset Age: 78 Diabetes mellitus Family history of hypercholesterolemia Depression Family history of glaucoma Father Family history of malignant neoplasm of skin, Onset Age: 74 Family history of cardiovascular disease Cerebrovascular accident Sibling Diabetes mellitus Family history of glaucoma Family history of cardiovascular disease Grandparent Family history of glaucoma Other Family history of elevated blood lipids Social History Social History Social History: Caffeine-coffee Smoking status: Never smoker Alcohol intake: never Substance use: never Substance use type: does not use Living arrangements: alone Gender identity (if verbalized by the patient): Female Spiritual care concerns: No Meds Home Medications and Allergies Home Medications ?Medication ?Instructions ?Recorded ?Confirmed ?Type azelastine 137 mcg-fluticasone 50 137 spray intranasal BID 08/25/19 01/25/25 History mcg/spray nasal spray (Dymista) cholecalciferol (vitamin D3) 25 25 mcg PO DAILY 01/25/25 History mcg (1,000 unit) tablet (Vitamin D3) mycophenolate mofetil 500 mg 1,000 mg PO DAILY 0 01/25/25 History tablet (CellCept) azelaic acid 15 % topical gel 1 applic topical DAILY P RN rosacea 09/26/22 01/23/25 History ipratropium bromide 21 mcg (0.03 2 spray intranasal DA SADA 09/26/22 01/25/25 History %) nasal spray estradiol 0.01% (0.1 mg/gram) 1 appful vaginal 2XW #42 .5 grams 11/07/24 01/25/25 Rx vaginal cream levothyroxine 100 mcg tablet 100 mcg PO DAILY #90 tabs 11/30/24 01/25/25 Rx omeprazole 40 mg capsule,delayed 40 mg PO DAILY #90 ca ps 11/30/24 01/25/25 Rx release clobetasol 0.05 % topical cream 1 applic topical BID P RN itching 01/02/25 01/23/25 Rx #60 grams evolocumab 140 mg/mL subcutaneous 140 mg subcut .COMPL EX #2 mL 01/02/25 01/23/25 Rx pen injector (fluid [employer]) Allergies Allergy/AdvReac Type Severity Reaction Status Date / Time cat dander Allergy Unknown unknown Verified 01/25/25 07:55 cefuroxime Allergy Unknown GI upset Verified 01/25/25 07:55 codeine Allergy Unknown Unknown Verified 01/25/25 07:55 dog dander Allergy Unknown unknown Verified 01/25/25 07:55 Penicillins Allergy Unknown Unknown Verified 01/25/25 07:55 [place] pecan coffee AdvReac Mild Rash Uncoded 11/30/24 08:42 Vital Signs Vital Signs - 24 hr 01/25/25 07:50 Temperature 97.0 F L Pulse Rate 77 Respiratory Rate 16 Blood Pressure 118/78 Pulse Oximetry 100 Oxygen Delivery Room Air Exam Const: General: comfortable and no acute distress HENMT: Face/Nose/Sinus: Normal nares present Eyes: General: appearance normal, both eyes and all related structures Neck: Neck: no JVD Resp: Auscultation: clear to auscultation bilaterally Cardio: Rate: regular rate Rhythm: regular rhythm GI: Inspection: non-distended GI Palp: Yes Soft to palpation Skin: General skin exam: normal color Extrem: General: normal to inspection Psych: Mental Status: mental status grossly normal Assessment and Plan Assessment and plan (1) History of colon polyps: Code(s): Z86.010 - Personal history of colon polyps Status: Acute Assessment and Plan: colonoscopy
--- NOTE | 2025-01-25 08:23 | P.PNAN_ITS ---
Anes - Initial Pre Proc Eval Procedure: Operation Date: 01/25/25 09:00 Proposed Procedures p Screening Colonoscopy - Aleksander Khalil MD Date/Time: 01/25/25 08:23 Surgeon: Aleksander Khalil MD Pre Op Diagnosis: Personal history of colon polyps, unspecified Patient Data Age: 64 Gender: F Height: 1.57 m Weight: 66 kg Last Vital Signs Temp 36.1 C L 01/25/25 07:50 Pulse 77 01/25/25 07:50 Resp 16 01/25/25 07:50 BP 118/78 01/25/25 07:50 Pulse Ox 100 01/25/25 07:50 O2 Del Method Room Air 01/25/25 07:50 Allergies Allergy/AdvReac Type Severity Reaction Status Date / Time cat dander Allergy Unknown unknown Verified 01/25/25 07:55 cefuroxime Allergy Unknown GI upset Verified 01/25/25 07:55 codeine Allergy Unknown Unknown Verified 01/25/25 07:55 dog dander Allergy Unknown unknown Verified 01/25/25 07:55 Penicillins Allergy Unknown Unknown Verified 01/25/25 07:55 [place] pecan coffee AdvReac Mild Rash Uncoded 11/30/24 08:42 Home Medications ?Medication ?Instructions ?Recorded ?Confirmed ?Type azelastine 137 mcg-fluticasone 50 137 spray intranasal BID 08/25/19 01/25/25 History mcg/spray nasal spray (Dymista) cholecalciferol (vitamin D3) 25 25 mcg PO DAILY 01/25/25 History mcg (1,000 unit) tablet (Vitamin D3) mycophenolate mofetil 500 mg 1,000 mg PO DAILY 0 01/25/25 History tablet (CellCept) azelaic acid 15 % topical gel 1 applic topical DAILY P RN rosacea 09/26/22 01/23/25 History ipratropium bromide 21 mcg (0.03 2 spray intranasal DA SADA 09/26/22 01/25/25 History %) nasal spray estradiol 0.01% (0.1 mg/gram) 1 appful vaginal 2XW #42 .5 grams 11/07/24 01/25/25 Rx vaginal cream levothyroxine 100 mcg tablet 100 mcg PO DAILY #90 tabs 11/30/24 01/25/25 Rx omeprazole 40 mg capsule,delayed 40 mg PO DAILY #90 ca ps 11/30/24 01/25/25 Rx release clobetasol 0.05 % topical cream 1 applic topical BID P RN itching 01/02/25 01/23/25 Rx #60 grams evolocumab 140 mg/mL subcutaneous 140 mg subcut .COMPL EX #2 mL 01/02/25 01/23/25 Rx pen injector (Jaime Simon) Patient hx anesthesia problems: none Family hx anesthesia problems: none Results Review: All pre-operative results and documents have been reviewed as part of the pre- operative evaluation. [facility] Past Medical History Medical History Obstructive sleep apnea Hepatitis C antibody test negative (09/25/17) Autoimmune hepatitis Mixed hyperlipidemia Hypothyroidism Family History Family History Mother Family history of hepatitis, Onset Age: 78 Diabetes mellitus Family history of hypercholesterolemia Depression Family history of glaucoma Father Family history of malignant neoplasm of skin, Onset Age: 74 Family history of cardiovascular disease Cerebrovascular accident Sibling Diabetes mellitus Family history of glaucoma Family history of cardiovascular disease Grandparent Family history of glaucoma Other Family history of elevated blood lipids Social History Social History Social History: Caffeine-coffee Smoking status: Never smoker Alcohol intake: never Substance use: never Substance use type: does not use Living arrangements: alone Gender identity (if verbalized by the patient): Female Spiritual care concerns: No Anes - Eval Final PreProcedure Day of Procedure 01/25/25 08:23 Patient weight: overweight Heart: regular rate and rhythm Lungs: clear to auscultation Airway: Mallampati scale class II Neurological: alert and oriented Last oral intake: >/= 8 hours ASA classification: III Emergent: no Anesthetic plan: proceed Anesthesia type and monitoring: general GIVS and standard monitoring Results Review: All pre-operative results and documents have been reviewed as part of the pre- operative evaluation. Informed Consent: The patient's anesthetic plan and its attendant risks and benefits were discussed with the patient/family/POA. Questions were solicited and answers provided to the satisfaction of the patient/family/POA.
--- NOTE | 2025-01-25 10:03 | S_PTH ---
PATIENT: Misty Messina LOC: [facility]#:[id number] AGE/SX: 64/F ROOM: RE01/25/[address]: Aleksander Khalil MD : 1960 BED: DIS: 01/25/2025 SPEC #: [id number] RECD: 01/25/25 13:22 STATUS: STEPHIE REDavid #: [id number] EDIN: 01/25/25 10:[address]: Aleksander Khalil DEPT: [facility] Surgical RECD BY: Destinee Martinez ENTERED: 01/25/25 13:22 SP TYPE: Surgical OTHR DR: Jocy Lizarraga, [place] Tissues: A - Colon Polypectomy B - Colon Polypectomy Procedures: Hematoxylin and Eosin Stain Gross and Microscopic Level 4
[2025-01-25 10:07] VITALS: BP 87/55; PULSE 82; RESP 12; O2SAT 98
[2025-01-25 10:17] VITALS: BP 94/61; PULSE 78; RESP 19; O2SAT 100
[2025-01-25 10:27] VITALS: BP 112/74; PULSE 80; RESP 21; O2SAT 100
== END 2025-01-25 10:40 | disposition home or self-care (01) ==
PROVIDERS: PCP Nurse Practitioner Family; Referring Provider Nurse Practitioner Family; Visit Provider Internal Medicine Gastroenterology
PROC: 0DJD8ZZ Inspection of Lower Intestinal Tract, Via Natural or Artificial Opening Endoscopic (ICD-10-PCS; CPT 45378; principal; 2025-01-25 09:00)
DX: Z12.11 Encounter for screening for malignant neoplasm of colon (principal); D12.8 Benign neoplasm of rectum; K63.5 Polyp of colon; K64.8 Other hemorrhoids
CPT/HCPCS: 45385; 88305; J2003; J2704; J7120